=== PATIENT | female | born 1970 | race Caucasian/White ===

== ENCOUNTER → 2018-04-27 | Day surgery (SDC) | payer OTHER ==
[2018-04-22 15:48] LABS: BASOPHILS % 0.1 % (0.0-1.0); EOSINOPHILS # (AUTO) 0.1 (0.0-0.4); EOSINOPHILS % 1.5 % (0.0-6.0); HEMOGLOBIN 13.8 g/dL (12.0-16.0); LYMPHOCYTES % 22.3 % (18.0-39.1); MEAN CORPUSCULAR HGB CONC 32.1 g/dL (31-35); MEAN CORPUSCULAR VOLUME 87.4 fL (81-99); MONOCYTES # (AUTO) 0.7 (0.2-0.8); MONOCYTES % 7.8 % (4.4-11.3); NEUTROPHILS # (AUTO) 6.1 (2.1-6.9); PLATELET COUNT 197 x10e3/uL (140-360); RED BLOOD COUNT 4.92 x10e6/uL (3.6-5.1); RED CELL DISTRIBUTION WIDTH 14.2 % (11.7-14.4)
[2018-04-22 16:15] LABS: ANION GAP 12.1 mmol/L (8-16); BLOOD UREA NITROGEN 19 mg/dL (7-26); BUN/CREATININE RATIO 27 (6-25); CALCIUM 8.9 mg/dL (8.4-10.2); CARBON DIOXIDE 28 mmol/L (22-29); CHLORIDE 103 mmol/L (98-107); EST GLOMERULAR FILTRATION RATE > 60 ML/MIN (60-); GLUCOSE 168 mg/dL (74-118); POTASSIUM 4.1 mmol/L (3.5-5.1); SODIUM 139 mmol/L (136-145)
[2018-04-22 16:32] LABS: INR 0.9; PROTHROMBIN TIME 12.6 seconds (11.9-14.5)
[2018-04-22 16:33] LABS: PARTIAL THROMBOPLASTIN TIME 30.2 seconds (23.8-35.5)
--- NOTE | 2018-04-22 17:01 | Diagnostic Imaging Report ---
EXAM: CHEST 2 VIEWS, PA and lateral DATE: 04/22/2018 Time stamp on exam: 3:49 PM INDICATION: Preoperative COMPARISON: None FINDINGS: LINES/TUBES: None LUNGS: No consolidations or edema. PLEURA: No effusions or pneumothorax. HEART AND MEDIASTINUM: Normal size and contour. BONES AND SOFT TISSUES: No acute findings. Mild degenerative changes of the spine. IMPRESSION: No acute thoracic abnormality. Signed by: Dr. Segun Olivas DO on 04/22/2018 4:57 PM
[~2018-04-27] MED LIST: ACETAMINOPHEN 1000 MG/100 ML 100 ML IV ONE; ACETAMINOPHEN 1000 MG/100 ML IV ONE; BIOTIN PO; BUPIVACAINE HCL 0.5% INJ 30 ML VIAL INJ ONE; CALCIUM PO; CEFAZOLIN SOD 2 GM/D5W 50ML 50 ML IV ONE; DEXAMETHASONE SOD PHOS INJ 4 MG/ML VIAL ONE; FARXIGA PO; FENTANYL CITRATE/PF 100MCG/2 ML INJ ONE; FISH OIL 1,0001 EAC2 PO; LIDOCAINE HCL 1% LOCAL INJ 20 ML VIAL ONE; LIDOCAINE HCL 2% LOCAL INJ 5 ML SDV VIAL INJ ONE; LISINOPRIL2.5 MG PO; LYRICA50 MG PO; MACA500 MG PO; MAG PO; METFORMIN HCL500 MG PO; MIDAZOLAM HCL 2 MG/2 ML VIAL ONE; MULTI-VITAMIN1 EACH PO; ONDANSETRON HCL INJ 2MG/ML 2ML 2 MG/ML VIAL ONE; PROPOFOL IV EMULSION 10 MG/ML 20 ML VIAL ONE; SEVOFLURANE INHAL SOLN 250 ML PEN BTL ONE; ZINC PO; ZOLOFT50 MG PO; ZYRTEC-D TABLE1 EACH PO; [UNRECOGNIZED DRUG - OTHER] PO
--- OUTSIDE RECORDS SUMMARY | 2018-04-27 10:52 | XMS REPORT ---
Author Author Admin, [place] Organization [facility] Address [address] [place] [address] Phone Allergies, Adverse Reactions, Alerts Allergy Name Reaction Description Start Date Severity Status Provider SRAVANTHI joint pain and swelling Severe Active Nanette Mccollum MD Conditions or Problems Problem Name Problem Code Onset Date Status Entry Date Provider Comment Standard Description Annotate Pulmonary nodule, right middle lobe 518.89 Active Nanette Mccollum MD Other diseases of lung, not elsewhere classified Diabetic foot ulcer, right 707.14 Active Nanette Mccollum MD Ulcer of heel and midfoot Constipation Unspecified 564.00 Active Nanette Mccollum MD Constipation, unspecified Personal history of colonic polyps V12.72 Active Nanette Mccollum MD Personal history of colonic polyps Vaginitis, atrophic 627.3 Active Nanette Mccollum MD Postmenopausal atrophic vaginitis Family history of cancer V16.9 Active Nanette Mccollum MD Family history of unspecified malignant neoplasm Family history of female breast cancer of early onset age < 50 in 2nd degree relative V16.3 Active Nanette Mccollum MD Family history of malignant neoplasm of breast Family history of ovarian cancer in 1st degree relative V16.41 Active Nanette Mccollum MD Family history of malignant neoplasm of ovary Glycosuria 791.5 Active Nanette Mccollum MD Glycosuria Screening mammogram V76.12 Active Nanette Mccollum MD Other screening mammogram Intertrigo 695.89 Active Nanette Mccollum MD Other specified erythematous conditions Vaccine against flu/influenza V04.8 Active Nanette Mccollum MD Need for prophylactic vaccination and inoculation against other viral diseases Polyarthritis NOS, multiple sites 719.49 Active Nanette Mccollum MD Pain in joint involving multiple sites Dysuria 788.1 Active Nanette Mccollum MD Dysuria BMI 40.0-44.9 Active Nanette Mccollum MD Body Mass Index 40.0-44.9, adult Back pain 724.5 Active Marin Lewis MD Backache, unspecified Chronic pain 338.29 Active Marin Lewis MD Other chronic pain Depression 311 Active Marin Lewis MD Depressive disorder, not elsewhere classified Insomnia 780.52 Active Em 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 Insomnia, unspecified MORBID OBESITY Active Em GRAHAM Morbid obesity Triglyceridemia 272.1 Active Marin Lewis MD Pure hyperglyceridemia WELL WOMAN V72.31 Active Marin Lewis MD Routine gynecological examination HYPERTENSION 401.1 Active China Doe MD Benign essential hypertension 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) 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.01 Active China Doe MD Acquired absence of both cervix and uterus PREVENTIVE HEALTH CARE V70.0 Active China Doe MD Routine general medical examination at a health care facility NEUROPATHY 355.9 Active Patel Rojas MD Mononeuritis of unspecified site ANXIETY DEPRESSION 300.4 Active Patel Rojas MD Dysthymic disorder FIBROMYALGIA 729.1 Active Patel Rojas MD Myalgia and myositis, unspecified ARTHRITIS 716.90 Active Patel Rojas MD Arthropathy, unspecified, site unspecified CHRONIC PAIN SYNDROME 338.4 Active Patel Rojas MD Chronic pain syndrome DIABETES MELLITUS 250.00 Active Patel Rojas MD Diabetes mellitus without mention of complication, type II or unspecified type, not stated as uncontrolled OBESITY 278.00 Active Patel Rojas MD Obesity, unspecified URI ICD-465.9 Inactive Nanette Mccollum MD Sinusitis ICD-473.9 Inactive Nanette Mccollum MD Acute bronchitis ICD-466.0 Inactive Nanette Mccollum MD External otitis ICD-380.10 Inactive Nanette Mccollum MD Viral URI ICD-465.9 Inactive Em GRAHAM Dysuria ICD-788.1 Inactive Em GRAHAM Skin rash ICD-782.1 Inactive Em MARTINEZP Mammogram, abnormal, bilateral 793.80 Inactive Joni Alvarez MD Abnormal mammogram, unspecified Screening mammogram ICD-V76.12 Inactive Em MARTINEZP Abnormal mammogram ICD-793.80 Inactive Joni Alvarez MD Skin tag ICD-701.9 Inactive Em GRAHAM Vaccine against influenza ICD-V04.8 Inactive Em GRAHAM Yeast infection ICD-112.9 Inactive Em Mendoza [facility] Yeast infection ICD-112.9 Inactive Joni Alvarez MD Boil ICD-680.9 Inactive Joni Alvarez MD UTI ICD-599.0 Inactive Joni Alvarez MD INTERTRIGO ICD-695.89 Inactive Joni Alvarez MD URI ICD-465.9 Inactive Joni Alvarez MD MAMMOGRAM, SCREENING V76.12 Inactive China Doe MD Other screening mammogram MAMMOGRAM, SCREENING ICD-V76.12 Inactive Lawrence Day MD BACTERIAL VAGINITIS ICD-616.10 Inactive Joni Alvarez MD INSOMNIA ICD-780.52 Inactive Em Mendoza [facility] INTERTRIGO ICD-695.89 Inactive Joni Alvarez MD CELLULITIS, TOE ICD-681.10 Inactive Patel Rojas MD NEED PROPHYLACTIC VACCINATION&INOCULATION FLU ICD-V04.81 Inactive Em Mendoza [facility] URI 465.9 Resolved Nanette Mccollum MD Acute upper respiratory infections of unspecified site Sinusitis 473.9 Resolved Nanette Mccollum MD Unspecified sinusitis (chronic) Acute bronchitis 466.0 Resolved Nanette Mccollum MD Acute bronchitis External otitis 380.10 Resolved Nanette Mccollum MD Infective otitis externa, unspecified right ear Viral URI 465.9 Resolved Em GRAHAM Acute upper respiratory infections of unspecified site Dysuria 788.1 Resolved Em MARTINEZP Dysuria Skin rash 782.1 Resolved Em MARTINEZP Rash and other nonspecific skin eruption Screening mammogram V76.12 Resolved Em MARTINEZP Other screening mammogram Abnormal mammogram 793.80 Resolved Joni Alvarez MD Abnormal mammogram, unspecified Skin tag 701.9 Resolved Em GRAHAM Unspecified hypertrophic and atrophic conditions of skin Vaccine against influenza V04.8 Resolved Em GRAHAM Need for prophylactic vaccination and inoculation against other viral diseases Yeast infection 112.9 Resolved Em MARTINEZP Candidiasis of unspecified site Yeast infection 112.9 Resolved Marin Lewis MD Candidiasis of unspecified site Boil 680.9 Resolved Marin Lewis MD Carbuncle and furuncle of unspecified site UTI 599.0 Resolved Marin Lewis MD Urinary tract infection, site not specified INTERTRIGO 695.89 Resolved Marin Lewis MD Other specified erythematous conditions URI 465.9 Resolved Marin Lewis MD Acute upper respiratory infections of unspecified site BACTERIAL VAGINITIS 616.10 Resolved Marin Lewis MD Vaginitis and vulvovaginitis, unspecified INSOMNIA 780.52 Resolved Em GRAHAM Insomnia, unspecified INTERTRIGO 695.89 Resolved Marin Lewis MD Other specified erythematous conditions CELLULITIS, TOE 681.10 Resolved Patel Rojas MD Cellulitis and abscess of toe, unspecified NEED PROPHYLACTIC VACCINATION&INOCULATION FLU V04.81 Resolved Em MARTINEZP Need for prophylactic vaccination and inoculation against influenza Medication List Medication Instructions Start Date Stop Date Generic Name NDC Status Provider Patient Instruction FLUTICASONE PROPIONATE 50 MCG/ACT NASAL SUSPENSION 1 spray in each nostril Twice a Day FLUTICASONE PROPIONATE 04568830932 Active Nanette Mccollum MD Active SERTRALINE HCL 25 MG ORAL TABLET 1 tab By Mouth at bedtime SERTRALINE HCL 81789020017 Active Nanette Mccollum MD Active LYRICA 100MG CAP TAKE 1 CAPSULE BY MOUTH THREE TIMES DAILY PREGABALIN 42981534438 Active Tara Holland SEMICONDUCTOR TECHNICIAN Active FARXIGA 10 MG ORAL TABLET 1 tab By Mouth Every day DAPAGLIFLOZIN PROPANEDIOL 93615484856 Active Nanette Mccollum MD Active FLUCONAZOLE 150 MG ORAL TABLET 1 tab By Mouth once As Needed FLUCONAZOLE 16141862706 Active Nanette Mccollum MD Active VICTOZA 18 MG/3ML SUBCUTANEOUS SOLUTION PEN-INJECTOR Inject 1.8mg sq Every Day LIRAGLUTIDE 99513820739 Active Nanette Mccollum MD Active CLOTRIMAZOLE-BETAMETHASONE 1-0.05 % EXTERNAL CREAM apply topically Twice a Day CLOTRIMAZOLE-BETAMETHASONE 90930516983 Active Nanette Mccollum MD Active NYSTATIN 451190 UNIT/GM EXTERNAL POWDER apply to affected area four times a day NYSTATIN 00596815805 Active Nanette Mccollum MD Active TYLENOL WITH CODEINE #3 300-30 MG ORAL TABLET 1 by mouth every 8 hours as needed ACETAMINOPHEN-CODEINE 37411128726 Active Nanette Mccollum MD Active ONETOUCH LANCETS use to test blood sugars Twice a Day LANCETS Active Paloma Vaughn CPHT Active ADVOCATE INSULIN PEN NEEDLES 31G X 5 MM use as directed daily INSULIN PEN NEEDLE 89592992776 Active Nanette Mccollum MD Active ADVOCATE INSULIN PEN NEEDLES 31G X 8 MM use daily SC to inject insulin INSULIN PEN NEEDLE 25052112453 Active Nanette Mccollum MD Active Innovacene 2 w/Device KIT Use as directed to test blood sugar 2 times a day BLOOD GLUCOSE MONITORING SUPPL 20030952437 Active Paloma Vaughn CPHT Active Fitbit ULTRA BLUE IN VITRO STRIP Use as directed to test blood sugar 2 times a day. GLUCOSE BLOOD 53881987845 Active Paloma Vaughn CPHT Active RELION SHORT PEN NEEDLES 31G X 8 MM Use to dose insulin 2 times a day. INSULIN PEN NEEDLE 18613817097 Active Tara Holland LVN Active B-12 COMPLIANCE INJECTION 1000 MCG/ML INJECTION KIT 1mL Subcutaneous every day for 1 week, then every week for 1 month, CYANOCOBALAMIN 41411618135 Active Em 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 MIXER Active SIMVASTATIN 20 MG ORAL TABLET 1 By Mouth take at bedtime SIMVASTATIN 16481720269 Active Nanette Mccollum MD Active LISINOPRIL 5 MG ORAL TABLET 1 by mouth every day LISINOPRIL 43734691370 Active Nanette Mccollum MD Active GLUCOPHAGE 1000 MG ORAL TABLET One twice a day METFORMIN HCL 42470944688 Active Nanette Mccollum MD Active CEPHALEXIN 500 MG ORAL CAPSULE 1 cap by mouth three times a day CEPHALEXIN 500 MG ORAL CAPSULE 188909 CEPHALEXIN Inactive INTRAROSA 6.5 MG VAGINAL INSERT isert PV at bedtime INTRAROSA 6.5 MG VAGINAL INSERT PRASTERONE Inactive PREMARIN 0.625 MG/GM VAGINAL CREAM 1 gm PV nightly at bedtime 3 times per week PREMARIN 0.625 MG/GM VAGINAL CREAM ESTROGENS, CONJUGATED VAGINAL Inactive BACTRIM DS 800-160 MG ORAL TABLET 1 tab by mouth twice a day BACTRIM DS 800-160 MG ORAL TABLET 850275 TRIMETHOPRIM-SULFAMETHOXAZOLE Inactive DIFLUCAN 150 MG ORAL TABLET 1 by mouth x1 dose DIFLUCAN 150 MG ORAL TABLET 730211 FLUCONAZOLE Inactive GLYBURIDE 5 MG ORAL TABLET 1 by mouth twice a day GLYBURIDE 5 MG ORAL TABLET 525396 GLYBURIDE Inactive SULFAMETHOXAZOLE-TRIMETHOPRIM 800-160 MG ORAL TABLET 1 tab By Mouth Twice a Day SULFAMETHOXAZOLE-TRIMETHOPRIM 800-160 MG ORAL TABLET 301626 SULFAMETHOXAZOLE-TRIMETHOPRIM Inactive PYRIDIUM 100 MG ORAL TABLET 1 by mouth 3 times a day as needed PYRIDIUM 100 MG ORAL TABLET 1571847 PHENAZOPYRIDINE HCL Inactive SULFAMETHOXAZOLE-TRIMETHOPRIM 800-160 MG ORAL TABLET 1 tab By Mouth Twice a Day SULFAMETHOXAZOLE-TRIMETHOPRIM 800-160 MG ORAL TABLET 504911 SULFAMETHOXAZOLE-TRIMETHOPRIM Inactive JANUVIA 100 MG ORAL TABLET 1 tab By Mouth Every day JANUVIA 100 MG ORAL TABLET SITAGLIPTIN PHOSPHATE Inactive AMOXICILLIN 500 MG ORAL CAPSULE Take 4 tabs By Mouth one hour before dental appointment. AMOXICILLIN 500 MG ORAL CAPSULE 695067 AMOXICILLIN Inactive LYRICA 75 MG ORAL CAPSULE 2 caps By Mouth Twice a Day LYRICA 75 MG ORAL CAPSULE PREGABALIN Inactive AMOXICILLIN-POT CLAVULANATE 500-125 MG ORAL TABLET 1 tab By Mouth Twice a Day x 10 days AMOXICILLIN-POT CLAVULANATE 500-125 MG ORAL TABLET 418897 AMOXICILLIN-POT CLAVULANATE Inactive CHERATUSSIN AC 100-10 MG/5ML ORAL SOLUTION 5 ml By Mouth Four Times a Day As Needed CHERATUSSIN AC 100-10 MG/5ML ORAL SOLUTION 123393 GUAIFENESIN-CODEINE Inactive AZITHROMYCIN 250 MG ORAL TABLET 2 tablets by mouth on day one then one tablet by mouth each day for a total of 5 days AZITHROMYCIN 250 MG ORAL TABLET 525717 AZITHROMYCIN Inactive GLYBURIDE 5 MG ORAL TABLET 2 tabs by mouth twice a day GLYBURIDE 5 MG ORAL TABLET 562508 GLYBURIDE Inactive [id number]-[id number] 3.5-69624-8 OTIC SUSPENSION 2 drop in ears Three Times a Day [id number] 3.5-39314-0 OTIC SUSPENSION 759413 [id number] Inactive TESSALON PERLES 100 MG ORAL CAPSULE 1 by mouth 3 times a day as needed for cough TESSALON PERLES 100 MG ORAL CAPSULE 251857 BENZONATATE Inactive VICTOZA 18 MG/3ML SUBCUTANEOUS SOLUTION PEN-INJECTOR 1.8 mg SC Every day VICTOZA 18 MG/3ML SUBCUTANEOUS SOLUTION PEN-INJECTOR LIRAGLUTIDE Inactive LANTUS 100 UNIT/ML SUBCUTANEOUS SOLUTION 20 units SC at bedtime LANTUS 100 UNIT/ML SUBCUTANEOUS SOLUTION INSULIN GLARGINE Inactive TRADJENTA 5 MG ORAL TABLET 1 tab By Mouth Every day TRADJENTA 5 MG ORAL TABLET LINAGLIPTIN Inactive JANUVIA 100 MG ORAL TABLET 1 tab By Mouth Every day JANUVIA 100 MG ORAL TABLET SITAGLIPTIN PHOSPHATE Inactive LEVEMIR FLEXTOUCH 100 UNIT/ML SUBCUTANEOUS SOLUTION PEN-INJECTOR 50 units Twice a Day s/c LEVEMIR FLEXTOUCH 100 UNIT/ML SUBCUTANEOUS SOLUTION PEN-INJECTOR INSULIN DETEMIR Inactive LEVEMIR FLEXTOUCH 100 UNIT/ML SUBCUTANEOUS SOLUTION PEN-INJECTOR 20 units SC Every day LEVEMIR FLEXTOUCH 100 UNIT/ML SUBCUTANEOUS SOLUTION PEN-INJECTOR INSULIN DETEMIR Inactive TOUJEO SOLOSTAR 300 UNIT/ML SUBCUTANEOUS SOLUTION PEN-INJECTOR 20 units SC Every day TOUJEO SOLOSTAR 300 UNIT/ML SUBCUTANEOUS SOLUTION PEN-INJECTOR INSULIN GLARGINE Inactive TRAMADOL HCL 50 MG ORAL TABLET 1 tablets by mouth 3 times a day as needed for pain TRAMADOL HCL 50 MG ORAL TABLET 682412 TRAMADOL HCL Inactive AUGMENTIN 500-125 MG ORAL TABLET 1 by mouth twice a day AUGMENTIN 500-125 MG ORAL TABLET 303123 AMOXICILLIN-POT CLAVULANATE Inactive BROMFED DM 30-2-10 MG/5ML ORAL SYRUP 10 mL every six hours as needed for cough/congestion BROMFED DM 30-2-10 MG/5ML ORAL SYRUP 1964573 [id number]-[id number] Inactive DIFLUCAN 150 MG ORAL TABLET 1 by mouth x1 dose today DIFLUCAN 150 MG ORAL TABLET 219375 FLUCONAZOLE Inactive CLOTRIMAZOLE-BETAMETHASONE 1-0.05 % EXTERNAL CREAM Apply twice daily CLOTRIMAZOLE-BETAMETHASONE 1-0.05 % EXTERNAL CREAM 180525 CLOTRIMAZOLE-BETAMETHASONE Inactive BACTRIM DS 800-160 MG ORAL TABLET 1 tablet by mouth twice daily for 10 days BACTRIM DS 800-160 MG ORAL TABLET 076927 SULFAMETHOXAZOLE-TRIMETHOPRIM Inactive HYDROCORTISONE 2.5 % EXTERNAL CREAM apply to affected area twice a day HYDROCORTISONE 2.5 % EXTERNAL CREAM 967383 HYDROCORTISONE Inactive BYETTA 10 MCG PEN 10 MCG/0.04ML SUBCUTANEOUS SOLUTION PEN-INJECTOR 10 mcg sc Twice a Day BYETTA 10 MCG PEN 10 MCG/0.04ML SUBCUTANEOUS SOLUTION PEN-INJECTOR EXENATIDE Inactive DIFLUCAN 150 MG ORAL TABLET 1 by mouth DIFLUCAN 150 MG ORAL TABLET 622407 FLUCONAZOLE Inactive GLYBURIDE 5 MG ORAL TABLET 2 tablets twice daily GLYBURIDE 5 MG ORAL TABLET 725627 GLYBURIDE Inactive DIFLUCAN 150 MG ORAL TABLET 1 by mouth DIFLUCAN 150 MG ORAL TABLET 619599 FLUCONAZOLE Inactive BACTRIM DS 800-160 MG ORAL TABLET 1 tab by mouth twice a day BACTRIM DS 800-160 MG ORAL TABLET 251458 TRIMETHOPRIM-SULFAMETHOXAZOLE Inactive KEFLEX 500 MG ORAL CAPSULE take one caps Twice a Day for 7 days KEFLEX 500 MG ORAL CAPSULE 886868 CEPHALEXIN Inactive LANTUS 100 UNIT/ML SUBCUTANEOUS SOLUTION Take 35u SC every evening. LANTUS 100 UNIT/ML SUBCUTANEOUS SOLUTION INSULIN GLARGINE Inactive BYETTA 10 MCG PEN 10 MCG/0.04ML SUBCUTANEOUS SOLUTION PEN-INJECTOR 10mcg SC bid BYETTA 10 MCG PEN 10 MCG/0.04ML SUBCUTANEOUS SOLUTION PEN-INJECTOR EXENATIDE Inactive BUSPIRONE HCL 10 MG ORAL TABLET 1 by mouth twice a day for anxiety BUSPIRONE HCL 10 MG ORAL TABLET 983730 BUSPIRONE HCL Inactive CELEBREX 200 MG ORAL CAPSULE 1 by mouth every day CELEBREX 200 MG ORAL CAPSULE 553207 CELECOXIB Inactive CLOTRIMAZOLE-BETAMETHASONE 1-0.05 % EXTERNAL CREAM Apply to affected area Three Times a Day CLOTRIMAZOLE-BETAMETHASONE 1-0.05 % EXTERNAL CREAM 673048 CLOTRIMAZOLE-BETAMETHASONE Inactive GLYBURIDE 5 MG ORAL TABLET 1 by mouth twice a day GLYBURIDE 5 MG ORAL TABLET 219538 GLYBURIDE Inactive HYDROCHLOROTHIAZIDE 25 MG ORAL TABLET 1 by mouth every day HYDROCHLOROTHIAZIDE 25 MG ORAL TABLET 984951 HYDROCHLOROTHIAZIDE Inactive TRAMADOL HCL 50 MG ORAL TABLET Two as needed up to every 8 hours TRAMADOL HCL 50 MG ORAL TABLET 347498 TRAMADOL HCL Inactive CLOTRIMAZOLE 1 % EXTERNAL CREAM apply Twice a Day to affected areas CLOTRIMAZOLE 1 % EXTERNAL CREAM 094772 CLOTRIMAZOLE Inactive FLAGYL 500 MG ORAL TABLET 1 tab by mouth twice a day for 7 days FLAGYL 500 MG ORAL TABLET 415336 METRONIDAZOLE Inactive TRAZODONE HCL 50 MG ORAL TABLET 1 by mouth nightly at bedtime TRAZODONE HCL 50 MG ORAL TABLET 235404 TRAZODONE HCL Inactive BYETTA 10 MCG PEN 10 MCG/0.04ML SUBCUTANEOUS SOLUTION PEN-INJECTOR Inject twice a day BYETTA 10 MCG PEN 10 MCG/0.04ML SUBCUTANEOUS SOLUTION PEN-INJECTOR EXENATIDE Inactive HYDROCODONE-ACETAMINOPHEN 7.5-325 MG ORAL TABLET take one tablet twice a ay HYDROCODONE-ACETAMINOPHEN 7.5-325 MG ORAL TABLET 182140 HYDROCODONE-ACETAMINOPHEN Inactive WELLBUTRIN SR 150 MG ORAL TABLET EXTENDED RELEASE 12 HOUR 1 by mouth twice a day WELLBUTRIN SR 150 MG ORAL TABLET EXTENDED RELEASE 12 HOUR BUPROPION HCL Inactive ATENOLOL 50 MG ORAL TABLET At bedtime ATENOLOL 50 MG ORAL TABLET 340315 ATENOLOL Inactive LYRICA 100 MG ORAL CAPSULE Take 1 capsule by mouth Three Times a Day LYRICA 100 MG ORAL CAPSULE PREGABALIN Inactive CLINDAMYCIN HCL 300 MG ORAL CAPSULE one tablet by mouth every 6 hours CLINDAMYCIN HCL 300 MG ORAL CAPSULE 038882 CLINDAMYCIN HCL Inactive TRAMADOL HCL ER (BIPHASIC) 100 MG ORAL TABLET EXTENDED RELEASE 24 HOUR One twice a day TRAMADOL HCL ER (BIPHASIC) 100 MG ORAL TABLET EXTENDED RELEASE 24 HOUR TRAMADOL HCL Inactive BD PEN NEEDLE MINI U/F 31G X 5 MM use as directed BD PEN NEEDLE MINI U/F 31G X 5 MM INSULIN PEN NEEDLE Inactive CELEXA 20 MG ORAL TABLET One dayly CELEXA 20 MG ORAL TABLET 799772 CITALOPRAM HYDROBROMIDE Inactive GLIPIZIDE ER 5 MG ORAL TABLET EXTENDED RELEASE 24 HOUR One 3 times a day GLIPIZIDE ER 5 MG ORAL TABLET EXTENDED RELEASE 24 HOUR GLIPIZIDE Inactive CEPHALEXIN 500 MG ORAL CAPSULE 1 cap by mouth three times a day CEPHALEXIN 58378100754 No Longer Active Nanette Mccollum MD Active INTRAROSA 6.5 MG VAGINAL INSERT isert PV at bedtime PRASTERONE 14720090005 No Longer Active Nanette Mccollum MD Active PREMARIN 0.625 MG/GM VAGINAL CREAM 1 gm PV nightly at bedtime 3 times per week ESTROGENS, CONJUGATED VAGINAL 16542572220 No Longer Active Nanette Mccollum MD Active BACTRIM DS 800-160 MG ORAL TABLET 1 tab by mouth twice a day TRIMETHOPRIM-SULFAMETHOXAZOLE 91547436984 No Longer Active Nanette Mccollum MD Active DIFLUCAN 150 MG ORAL TABLET 1 by mouth x1 dose FLUCONAZOLE 19554952258 No Longer Active Nanette Mccollum MD Active GLYBURIDE 5 MG ORAL TABLET 1 by mouth twice a day GLYBURIDE 60744836480 No Longer Active Nanette Mccollum MD Active SULFAMETHOXAZOLE-TRIMETHOPRIM 800-160 MG ORAL TABLET 1 tab By Mouth Twice a Day SULFAMETHOXAZOLE-TRIMETHOPRIM 00454334226 No Longer Active Nanette Mccollum MD Active TRULICITY 1.5 MG/0.5ML SUBCUTANEOUS SOLUTION PEN-INJECTOR 0.25 ml SC Every week DULAGLUTIDE 78011381241 No Longer Active Nanette Mccollum MD Active PYRIDIUM 100 MG ORAL TABLET 1 by mouth 3 times a day as needed PHENAZOPYRIDINE HCL 40268642434 No Longer Active Nanette Mccollum MD Active SULFAMETHOXAZOLE-TRIMETHOPRIM 800-160 MG ORAL TABLET 1 tab By Mouth Twice a Day SULFAMETHOXAZOLE-TRIMETHOPRIM 06743218309 No Longer Active Nanette Mccollum MD Active JANUVIA 100 MG ORAL TABLET 1 tab By Mouth Every day SITAGLIPTIN PHOSPHATE 09783203436 No Longer Active Nanette Mccollum MD Active AMOXICILLIN 500 MG ORAL CAPSULE Take 4 tabs By Mouth one hour before dental appointment. AMOXICILLIN 92484735209 No Longer Active Dayne Lal DDS Active LYRICA 75 MG ORAL CAPSULE 2 caps By Mouth Twice a Day PREGABALIN 35414593752 No Longer Active Nanette Mccollum MD Active AMOXICILLIN-POT CLAVULANATE 500-125 MG ORAL TABLET 1 tab By Mouth Twice a Day x 10 days AMOXICILLIN-POT CLAVULANATE 29699345031 No Longer Active Nanette Mccollum MD Active CHERATUSSIN AC 100-10 MG/5ML ORAL SOLUTION 5 ml By Mouth Four Times a Day As Needed GUAIFENESIN-CODEINE 11114526649 No Longer Active Nanette Mccollum MD Active AZITHROMYCIN 250 MG ORAL TABLET 2 tablets by mouth on day one then one tablet by mouth each day for a total of 5 days AZITHROMYCIN 79444594140 No Longer Active Nanette Mccollum MD Active GLYBURIDE 5 MG ORAL TABLET 2 tabs by mouth twice a day GLYBURIDE 81749347939 No Longer Active Nanette Mccollum MD Active [id number]-[id number]-AZ 3.5-42517-8 OTIC SUSPENSION 2 drop in ears Three Times a Day [id number] 50918370845 No Longer Active Nanette Mccollum MD Active TESSALON PERLES 100 MG ORAL CAPSULE 1 by mouth 3 times a day as needed for cough BENZONATATE 85765617678 No Longer Active Nanette Mccollum MD Active VICTOZA 18 MG/3ML SUBCUTANEOUS SOLUTION PEN-INJECTOR 1.8 mg SC Every day LIRAGLUTIDE 10564273559 No Longer Active Paloma Vaughn CPHT Active LANTUS 100 UNIT/ML SUBCUTANEOUS SOLUTION 20 units SC at bedtime INSULIN GLARGINE 65009632290 No Longer Active Nanette Mccollum MD Active TRADJENTA 5 MG ORAL TABLET 1 tab By Mouth Every day LINAGLIPTIN 04697934699 No Longer Active Nanette Mccollum MD Active JANUVIA 100 MG ORAL TABLET 1 tab By Mouth Every day SITAGLIPTIN PHOSPHATE 40809645186 No Longer Active Nanette Mccollum MD Active LEVEMIR FLEXTOUCH 100 UNIT/ML SUBCUTANEOUS SOLUTION PEN-INJECTOR 50 units Twice a Day s/c INSULIN DETEMIR 24447137521 No Longer Active Donna Thakur MA Active LEVEMIR FLEXTOUCH 100 UNIT/ML SUBCUTANEOUS SOLUTION PEN-INJECTOR 20 units SC Every day INSULIN DETEMIR 21637388413 No Longer Active Marin Lewis MD Active SOLITARIOAlethaSAVANNAH FRANCISOSTAR 300 UNIT/ML SUBCUTANEOUS SOLUTION PEN-INJECTOR 20 units SC Every day INSULIN GLARGINE 76805135006 No Longer Active Nanette Mccollum MD Active TRAMADOL HCL 50 MG ORAL TABLET 1 tablets by mouth 3 times a day as needed for pain TRAMADOL HCL 66728996255 No Longer Active Nanette Mccollum MD Active AUGMENTIN 500-125 MG ORAL TABLET 1 by mouth twice a day AMOXICILLIN-POT CLAVULANATE 70920936955 No Longer Active Em GRAHAM Active BROMFED DM 30-2-10 MG/5ML ORAL SYRUP 10 mL every six hours as needed for cough/congestion [id number] 93028475488 No Longer Active Em GRAHAM Active DIFLUCAN 150 MG ORAL TABLET 1 by mouth x1 dose today FLUCONAZOLE 24023435033 No Longer Active Em GRAHAM Active CLOTRIMAZOLE-BETAMETHASONE 1-0.05 % EXTERNAL CREAM Apply twice daily CLOTRIMAZOLE-BETAMETHASONE 91090623634 No Longer Active Em GRAHAM Active BACTRIM DS 800-160 MG ORAL TABLET 1 tablet by mouth twice daily for 10 days SULFAMETHOXAZOLE-TRIMETHOPRIM 34276317159 No Longer Active Em GRAHAM Active HYDROCORTISONE 2.5 % EXTERNAL CREAM apply to affected area twice a day HYDROCORTISONE 25648293123 No Longer Active Em GRAHAM Active BYETTA 10 MCG PEN 10 MCG/0.04ML SUBCUTANEOUS SOLUTION PEN-INJECTOR 10 mcg sc Twice a Day EXENATIDE 29500292518 No Longer Active Nanette Mccollum MD Active DIFLUCAN 150 MG ORAL TABLET 1 by mouth FLUCONAZOLE 76594002173 No Longer Active Em GRAHAM Active GLYBURIDE 5 MG ORAL TABLET 2 tablets twice daily GLYBURIDE 09289294326 No Longer Active Nanette Mccollum MD Active DIFLUCAN 150 MG ORAL TABLET 1 by mouth FLUCONAZOLE 46097890366 No Longer Active Marin Lewis MD Active BACTRIM DS 800-160 MG ORAL TABLET 1 tab by mouth twice a day TRIMETHOPRIM-SULFAMETHOXAZOLE 71278724165 No Longer Active Marin Lewis MD Active KEFLEX 500 MG ORAL CAPSULE take one caps Twice a Day for 7 days CEPHALEXIN 56204529269 No Longer Active Diamond Bryant MD Active LANTUS 100 UNIT/ML SUBCUTANEOUS SOLUTION Take 35u SC every evening. INSULIN GLARGINE 74362528235 No Longer Active Marin Lewis MD Active BYETTA 10 MCG PEN 10 MCG/0.04ML SUBCUTANEOUS SOLUTION PEN-INJECTOR 10mcg SC bid EXENATIDE 21463670416 No Longer Active Marin Lewis MD Active BUSPIRONE HCL 10 MG ORAL TABLET 1 by mouth twice a day for anxiety BUSPIRONE HCL 01923650187 No Longer Active Marin Lewis MD Active CELEBREX 200 MG ORAL CAPSULE 1 by mouth every day CELECOXIB 54672522657 No Longer Active Marin Lewis MD Active CLOTRIMAZOLE-BETAMETHASONE 1-0.05 % EXTERNAL CREAM Apply to affected area Three Times a Day CLOTRIMAZOLE-BETAMETHASONE 40267127229 No Longer Active Diamond Bryant MD Active GLYBURIDE 5 MG ORAL TABLET 1 by mouth twice a day GLYBURIDE 17259402275 No Longer Active Apryl Ridley D.O. Active HYDROCHLOROTHIAZIDE 25 MG ORAL TABLET 1 by mouth every day HYDROCHLOROTHIAZIDE 44898199567 No Longer Active Marin Lewis MD Active TRAMADOL HCL 50 MG ORAL TABLET Two as needed up to every 8 hours TRAMADOL HCL 80763989582 No Longer Active Nikunj Hammond DO Active CLOTRIMAZOLE 1 % EXTERNAL CREAM apply Twice a Day to affected areas CLOTRIMAZOLE 52195331471 No Longer Active [place] Doe MD Active FLAGYL 500 MG ORAL TABLET 1 tab by mouth twice a day for 7 days METRONIDAZOLE [id number] No Longer Active Diamond Bryant MD Active TRAZODONE HCL 50 MG ORAL TABLET 1 by mouth nightly at bedtime TRAZODONE HCL 18664234598 No Longer Active Marin Lewis MD Active NYSTATIN 561010 UNIT/GM EXTERNAL CREAM Apply to affectted area TID NYSTATIN 75723642819 No Longer Active Maki King DO Active BYETTA 10 MCG PEN 10 MCG/0.04ML SUBCUTANEOUS SOLUTION PEN-INJECTOR Inject twice a day EXENATIDE [id number] No Longer Active Apryl Ridley D.O. Active HYDROCODONE-ACETAMINOPHEN 7.5-325 MG ORAL TABLET take one tablet twice a ay HYDROCODONE-ACETAMINOPHEN 71119425637 No Longer Active Diamond Bryant MD Active WELLBUTRIN SR 150 MG ORAL TABLET EXTENDED RELEASE 12 HOUR 1 by mouth twice a day BUPROPION HCL 64733571055 No Longer Active China Doe MD Active ATENOLOL 50 MG ORAL TABLET At bedtime ATENOLOL 24113530818 No Longer Active Marin Lewis MD Active LYRICA 100 MG ORAL CAPSULE Take 1 capsule by mouth Three Times a Day PREGABALIN 26406790607 No Longer Active Nanette Mccollum MD Active CLINDAMYCIN HCL 300 MG ORAL CAPSULE one tablet by mouth every 6 hours CLINDAMYCIN HCL 54405508019 No Longer Active Patel Rojas MD Active TRAMADOL HCL ER (BIPHASIC) 100 MG ORAL TABLET EXTENDED RELEASE 24 HOUR One twice a day TRAMADOL HCL 29503091862 No Longer Active Patel Rojas MD Active BD PEN NEEDLE MINI U/F 31G X 5 MM use as directed INSULIN PEN NEEDLE 26806643824 No Longer Active Marin Lewis MD Active CELEXA 20 MG ORAL TABLET One dayly CITALOPRAM HYDROBROMIDE 15713355726 No Longer Active Patel Rojas MD Active GLIPIZIDE ER 5 MG ORAL TABLET EXTENDED RELEASE 24 HOUR One 3 times a day GLIPIZIDE 46941733415 No Longer Active Patel Rojas MD Active NORTRIPTYLINE HCL 25 MG ORAL CAPSULE One daily at bedtime NORTRIPTYLINE HCL 60501875925 No Longer Active Patel Rojas MD Active TRIAMTERENE-HCTZ 75-50 MG ORAL TABLET One daily TRIAMTERENE-HCTZ 25081480722 No Longer Active Tara Holland IBETH Active Immunizations Vaccine Administration Date Value Standard Description influenza immunization (Flu Vax) has been administered given influenza virus vaccine, unspecified formulation influenza immunization (Flu Vax) has been administered given influenza virus vaccine, unspecified formulation influenza immunization (Flu Vax) has been administered given influenza virus vaccine, unspecified formulation Vital Signs Date Name Value Unit Range Description blood pressure, diastolic 76 mm[Hg] BP quiroz blood pressure, systolic 124 mm[Hg] BP sys height E&M 67 [in_us] Bdy height pulse rate E&M 85 /min Heart rate respiratory rate E&M 20 /min Resp rate temperature E&M 98.0 [degF] Body temperature weight E&M 212 [lb_av] Weight Measured blood pressure, diastolic 77 mm[Hg] BP quiroz blood pressure, systolic 125 mm[Hg] BP sys height E&M 67 [in_us] Bdy height pulse rate E&M 71 /min Heart rate respiratory rate E&M 22 /min Resp rate temperature E&M 98.2 [degF] Body temperature weight E&M 216 [lb_av] Weight Measured blood pressure, diastolic 80 mm[Hg] BP quiroz blood pressure, systolic 130 mm[Hg] BP sys height E&M 67 [in_us] Bdy height pulse rate E&M 70 /min Heart rate respiratory rate E&M 18 /min Resp rate temperature E&M 98.3 [degF] Body temperature weight E&M 228 [lb_av] Weight Measured blood pressure, diastolic, second observation 90 mm[Hg] BP quiroz blood pressure, diastolic 90 mm[Hg] BP quiroz blood pressure, systolic, second observation 147 mm[Hg] BP sys blood pressure, systolic 147 mm[Hg] BP sys height E&M 67 [in_us] Bdy height pulse rate E&M 111 /min Heart rate respiratory rate E&M 16 /min Resp rate temperature E&M 99.4 [degF] Body temperature weight E&M 230 [lb_av] Weight Measured blood pressure, diastolic 80 mm[Hg] BP quiroz blood pressure, systolic 120 mm[Hg] BP sys height E&M 67 [in_us] Bdy height pulse rate E&M 85 /min Heart rate respiratory rate E&M 16 /min Resp rate temperature E&M 98.2 [degF] Body temperature weight E&M 246 [lb_av] Weight Measured blood pressure, diastolic 86 mm[Hg] BP quiroz blood pressure, systolic 132 mm[Hg] BP sys height E&M 67 [in_us] Bdy height pulse rate E&M 82 /min Heart rate respiratory rate E&M 18 /min Resp rate temperature E&M 98.2 [degF] Body temperature weight E&M 246.80 [lb_av] Weight Measured blood pressure, diastolic 85 mm[Hg] BP quiroz blood pressure, systolic 130 mm[Hg] BP sys height E&M 67 [in_us] Bdy height pulse rate E&M 85 /min Heart rate respiratory rate E&M 16 /min Resp rate temperature E&M 97.7 [degF] Body temperature weight E&M 253.50 [lb_av] Weight Measured blood pressure, diastolic, second observation 89 mm[Hg] BP quiroz blood pressure, diastolic 89 mm[Hg] BP quiroz blood pressure, systolic, second observation 138 mm[Hg] BP sys blood pressure, systolic 138 mm[Hg] BP sys height E&M 67 [in_us] Bdy height pulse rate E&M 111 /min Heart rate respiratory rate E&M 16 /min Resp rate temperature E&M 98.3 [degF] Body temperature weight E&M 252.20 [lb_av] Weight Measured blood pressure, diastolic 85 mm[Hg] BP quiroz blood pressure, systolic 154 mm[Hg] BP sys height E&M 67 [in_us] Bdy height pulse rate E&M 108 /min Heart rate respiratory rate E&M 18 /min Resp rate temperature E&M 98.4 [degF] Body temperature weight E&M 251 [lb_av] Weight Measured blood pressure, diastolic 92 mm[Hg] BP quiroz blood pressure, systolic 155 mm[Hg] BP sys height E&M 67 [in_us] Bdy height pulse rate E&M 83 /min Heart rate respiratory rate E&M 18 /min Resp rate temperature E&M 98.1 [degF] Body temperature weight E&M 262.40 [lb_av] Weight Measured Diagnostic Results Date Name Value Unit Range Description Lab Report: UA/M w/rflx Culture, Routine, Microscopic Examination, UA/M ... - Urinalysis mucus on urinalysis Present Not Estab. WBC urine on microscopy 0-5 /hpf {Cells}/[HPF] 0 - 5 Lab Report: FSH and LH, Hemoglobin A1c - Chemistry follicle stimulating hormone, serum 60.5 m[iU]/mL Lab Report: CBC With Differential/Platelet, Comp. Metabolic Panel (14), ... - Chemistry very low density lipoproteins 37 mg/dL 5-40 Lab Report: UA/M w/rflx Culture, Routine, Microscopic Examination, UA/M ... - Urinalysis epithelial cells, urine 0-10 /[LPF] 0 - 10 Lab Report: CBC With Differential/Platelet, Comp. Metabolic Panel (14), ... - Chemistry chloride, serum 101 mmol/L 96-106 urea nitrogen, blood 13 mg/dL 6-24 Office Visit: Adult Followup - Urinalysis leukocyte esterase, urine, by dipstick negative Lab Report: CBC With Differential/Platelet, Comp. Metabolic Panel (14), ... - Hematology mean corpuscular hemoglobin concentration, RBC 31.7 G/DL % 31.5-35.7 Office Visit: Adult Followup - Urinalysis nitrite, urine, semiquantitative negative Lab Report: CBC With Differential/Platelet, Comp. Metabolic Panel (14), ... - Hematology erythrocyte (RBC) count 5.10 X10E6/UL 10*6/mm3 3.77-5.28 Office Visit: Adult Followup - Urinalysis urine color light yellow bilirubin, urine negative Lab Report: CBC With Differential/Platelet, Comp. Metabolic Panel (14), ... - Chemistry Absolute Neutrophils 7.7 X10E3/UL 10*3/uL 1.4-7.0 LDL cholesterol, serum 96 mg/dL 0-99 urea nitrogen/creatinine ratio, serum 20 9-23 Lab Report: CBC With Differential/Platelet, Comp. Metabolic Panel (14), ... - Hematology mean corpuscular volume, RBC 89 fL 79-97 Internal Correspondence: Pre-Visit Planning - CC care inspector outside steam distribution #1, name Donna Thakur Lab Report: CBC With Differential/Platelet, Comp. Metabolic Panel (14), ... - Chemistry HDL cholesterol, serum 57 mg/dL >39 Lab Report: CBC With Differential/Platelet, Comp. Metabolic Panel (14), ... - Hematology monocytes as percent of blood leukocytes 8 % Not Estab. Lab Report: CBC With Differential/Platelet, Comp. Metabolic Panel (14), ... - Chemistry albumin/globulin ratio, serum 1.5 1.2-2.2 creatinine, serum 0.64 mg/dL 0.57-1.00 cholesterol, serum 190 mg/dL 399-918 3848/07/19 creatinine, random, urine 54.0 mg/dL Not Estab. bilirubin, serum, total 0.4 mg/dL 0.0-1.2 Lab Report: CBC With Differential/Platelet, Comp. Metabolic Panel (14), ... - Hematology Eosinophil Absolute Count 0.2 X10E3/UL 10*3/uL 0.0-0.4 Office Visit: Adult Followup - Urinalysis appearance, urine clear blood in urine (hemoglobin) by dipstick negative Lab Report: CBC With Differential/Platelet, Comp. Metabolic Panel (14), ... - Chemistry aspartate aminotransferase (SGOT), serum 40 U/L 0-40 Lab Report: CBC With Differential/Platelet, Comp. Metabolic Panel (14), ... - Hematology red blood cell distribution width 14.8 % 12.3-15.4 Lab Report: UA/M w/rflx Culture, Routine, Microscopic Examination, UA/M ... - Urinalysis urinalysis, microscopic examination MICRON Office Visit: Adult Followup - Urinalysis pH, urine, semiquantitative 5.0 Lab Report: CBC With Differential/Platelet, Comp. Metabolic Panel (14), ... - Hematology leukocyte count, blood 11.6 X10E3/UL 10*3/mm3 3.4-10.8 Lab Report: UA/M w/rflx Culture, Routine, Microscopic Examination, UA/M ... - Urinalysis Crystal Type, Urine Calcium Oxalate N/A Lab Report: CBC With Differential/Platelet, Comp. Metabolic Panel (14), ... - Chemistry potassium, serum 4.4 mmol/L 3.5-5.2 albumin, serum 4.1 g/dL 3.5-5.5 immature granulocytes, percentage of total cells, blood 0 % Not Estab. Lab Report: CBC With Differential/Platelet, Comp. Metabolic Panel (14), ... - Hematology lymphocyte count, blood, automated 2.8 X10E3/UL 10*3/mm3 0.7-3.1 hematocrit, blood 45.4 % 34.0-46.6 Lab Report: CBC With Differential/Platelet, Comp. Metabolic Panel (14), ... - Chemistry sodium, serum 143 mmol/L 134-144 Lab Report: CBC With Differential/Platelet, Comp. Metabolic Panel (14), ... - Urinalysis urine culture Klebsiella pneumoniae Lab Report: CBC With Differential/Platelet, Comp. Metabolic Panel (14), ... - Hematology neutrophils as percent of blood leukocytes 67 % Not Estab. basophils as percent of blood leukocytes 0 % Not Estab. Internal Correspondence: Pre-Visit Planning - Other List of providers caring for patient Donna Mercado and Ana Luisa Larios Lab Report: UA/M w/rflx Culture, Routine, Microscopic Examination, UA/M ... - Chemistry specific gravity, body fluid 1.028 1.005-1.030 Office Visit: Adult Followup - Urinalysis protein, urine, semiquantitative (dipstick) negative Lab Report: UA/M w/rflx Culture, Routine, Microscopic Examination, UA/M ... - Chemistry RBC, Urine 0-2 /hpf /[HPF] 0 - 2 Lab Report: UA/M w/rflx Culture, Routine, Microscopic Examination, UA/M ... - Microbiology microscopic exam See below: Lab Report: CBC With Differential/Platelet, Comp. Metabolic Panel (14), ... - Chemistry carbon dioxide, venous blood 24 mmol/L 20-29 Lab Report: UA/M w/rflx Culture, Routine, Microscopic Examination, UA/M ... - Chemistry nitrate, urine Negative Negative Lab Report: CBC With Differential/Platelet, Comp. Metabolic Panel (14), ... - Chemistry triglyceride, serum, fasting 187 mg/dL 0-149 calcium, serum 9.4 mg/dL 8.7-10.2 Lab Report: Comp. Metabolic Panel (14), UA/M w/rflx Culture, Routine, Mi ... - Chemistry microalbumin/creatinine ratio, urine 5.3 MG/G CREAT ug/mg 0.0-30.0 Lab Report: CBC With Differential/Platelet, Comp. Metabolic Panel (14), ... - Chemistry alanine aminotransferase (SGPT), serum 54 U/L 0-32 Lab Report: CBC With Differential/Platelet, Comp. Metabolic Panel (14), ... - Hematology mean corpuscular hemoglobin, RBC 28.2 pg 26.6-33.0 Office Visit: Adult Followup Dr Mccollum Rm 1 - Chemistry blood glucose, fasting 236 mg/dL Office Visit: Adult Followup - Urinalysis specific gravity, urine 1.005 Lab Report: UA/M w/rflx Culture, Routine, Microscopic Examination, UA/M ... - Urinalysis bacteria, urine microscopy None seen None seen/Few Lab Report: CBC With Differential/Platelet, Comp. Metabolic Panel (14), ... - Chemistry protein, total, serum 6.9 g/dL 6.0-8.5 alkaline phosphatase, serum 68 U/L 39-117 Lab Report: CBC With Differential/Platelet, Comp. Metabolic Panel (14), ... - Hematology hemoglobin, blood 14.4 g/dL 11.1-15.9 lymphocytes as percent of blood leukocytes 24 % Not Estab. Lab Report: CBC With Differential/Platelet, Comp. Metabolic Panel (14), ... - Chemistry hemoglobin A1C, blood, as % of total hemoglobin 8.4 % 4.8-5.6 Office Visit: Adult Followup - Urinalysis glucose, urine, semiquantitative 4+ Lab Report: CBC With Differential/Platelet, Comp. Metabolic Panel (14), ... - Genetics/fertility eGFR if 122 mL/min/1.73m2 >59 Lab Report: CBC With Differential/Platelet, Comp. Metabolic Panel (14), ... - Hematology basophil count, absolute 0.0 x10E3/uL 0.0-0.2 Lab Report: CBC With Differential/Platelet, Comp. Metabolic Panel (14), ... - Chemistry globulin, serum 2.8 1.5-4.5 Estimated Glomerular Filtration Rate (calc) 106 mL/min/1.73m2 >59 Lab Report: UA/M w/rflx Culture, Routine, Microscopic Examination, UA/M ... - Basic Occult Blood, urine Negative Negative Lab Report: UA/M w/rflx Culture, Routine, Microscopic Examination, UA/M ... - Urinalysis urine crystals, microscopic Present /[HPF] N/A Lab Report: FSH and LH, Hemoglobin A1c - Chemistry luteinizing hormone, serum 48.4 m[iU]/mL Lab Report: CBC With Differential/Platelet, Comp. Metabolic Panel (14), ... - Urinalysis microalbumin/total urine volume 5.0 mg/L Not Estab. Lab Report: CBC With Differential/Platelet, Comp. Metabolic Panel (14), ... - Hematology eosinophils as percent of blood leukocytes 1 % Not Estab. Lab Report: CBC With Differential/Platelet, Comp. Metabolic Panel (14), ... - Chemistry blood glucose, random 68 mg/dL 65-99 Office Visit: Adult Followup - Urinalysis urobilinogen, urine, semiquantitative (dipstick) negative Lab Report: CBC With Differential/Platelet, Comp. Metabolic Panel (14), ... - Hematology monocyte count, blood, automated 0.9 X10E3/UL 10*3/uL 0.1-0.9 Office Visit: Adult Followup - Urinalysis ketones, urine, by test strip trace (5) Lab Report: CBC With Differential/Platelet, Comp. Metabolic Panel (14), ... - Hematology platelet count 204 X10E3/UL 10*3/mm3 150-379 Encounters Date Encounter Provider Code Facility 13:28:43 CDT Est Patient Exp Problem - [id number] Nanette Mccollum MD CPT-72902 [facility] 16:38:35 CDT Est Patient Exp Problem - 15633 Nanette Mccollum MD CPT-94535 [facility] 14:37:29 CDT Est Patient Exp Problem - 16450 Nanette Mccollum MD CPT-58276 [facility] 16:36:50 CDT Est Patient Detailed - 31570 Nanette Mccollum MD CPT-71127 [facility] 11:46:27 CDT Est Patient Exp Problem - 32533 Em MARTINEZP CPT-61844 [facility] 15:21:02 CDT Est Patient Exp Problem - 92605 Nanette Mccollum MD CPT-47252 [facility] 19:45:00 CDT Est Patient Exp Problem - 52927 Nanette Mccollum MD CPT-13467 [facility] 10:50:55 [employer]ATION ENGINE[employer] CHIEF Est Patient Detailed - 83610 Nanette Mccollum MD CPT-54655 [facility] 15:08:16 STATION ENGINEER CHIEF Est Patient Exp Problem - 20132 Nanette Mccollum MD CPT-38575 [facility] 12:39:15 STATION ENGINEER CHIEF Est Patient Exp Problem - 44016 Nanette Mccollum MD CPT-73622 [facility] 13:24:52 CDT Est Patient Exp Problem - 70919 Nanette Mccollum MD CPT-03900 [facility] 15:28:02 CDT Est Patient Exp Problem - 62233 Nanette Mccollum MD CPT-38966 [facility] 08:52:44 CDT Est Patient Exp Problem - 88471 Nanette Mccollum MD CPT-39277 [facility] 14:14:09 CDT Est Patient Exp Problem - 44738 Nanette Mccollum MD CPT-48951 [facility] 12:02:19 STATION ENGINEER CHIEF Est Patient Exp Problem - 45181 Nanette Mccollum MD CPT-10599 [facility] 16:39:15 STATION ENGINEER CHIEF Est Patient Exp Problem - 47777 Nanette Mccollum MD CPT-90568 [facility] 07:52:32 STATION ENGINEER CHIEF Est Patient Exp Problem - 01268 Marin Lewis MD CPT-74830 [facility] 11:04:58 STATION ENGINEER CHIEF Est Patient Exp Problem - 61722 Nanette Mccollum MD CPT-62820 [facility] 09:48:54 STATION ENGINEER CHIEF Est Patient Exp Problem - 21400 Em Mendoza [facility] CPT-20604 [facility] 14:52:28 CDT Est Patient Exp Problem - 91077 Em Mendoza [facility] CPT-09194 [facility] 09:27:32 CDT Est Patient Exp Problem - 16006 Emradhika Mendoza [facility] CPT-70427 [facility] 09:21:49 CDT Est Patient Exp Problem - 85883 Em Kelly [facility] CPT-36405 [facility] 12:01:51 STATION ENGINEER CHIEF Ofc Vst, Est Level III Marin Lewis MD CPT-72329 [facility] 21:14:38 CDT Ofc Vst, Est Level III Diamond Bryant MD CPT-39334 [facility] 19:44:39 CDT Est Patient Exp Problem - 56033 Diamond Bryant MD CPT-64517 [facility] 18:36:12 CDT Est Patient Exp Problem - 45825 Apryl Rosales.O. CPT-41162 [facility] 14:03:49 CDT Est Patient Exp Problem - 42507 Apryl Rosales.O. CPT-41991 [facility] 09:37:09 STATION ENGINEER CHIEF Est Patient Exp Problem - 64493 Apryl Rosales.O. CPT-74474 [facility] 13:33:56 STATION ENGINEER CHIEF Est Patient Exp Problem - 49466 Diamond Bryant MD CPT-37464 [facility] 16:00:53 STATION ENGINEER CHIEF Est Patient Exp Problem - 33995 Nikunj Hammond DO CPT-76701 [facility] 09:56:19 CDT Est Patient Exp Problem - 02933 China Doe MD CPT-93236 [facility] 09:10:49 CDT Est Patient Exp Problem - 71205 China Doe MD CPT-89336 [facility] 17:40:28 CDT Ofc Vst, Est Level III China Doe MD CPT-26084 [facility] 15:08:09 CDT Est Patient Exp Problem - 57637 Nikunj Hammond DO CPT-78412 [facility] 10:49:40 CDT Est Patient Exp Problem - 94492 Patel Rojas MD CPT-38012 [facility] 11:03:25 CDT Est Patient Exp Problem - 06572 Patel Rojas MD CPT-42202 [facility] 12:22:50 CDT Est Patient Exp Problem - 82809 Patel Rojas MD CPT-83514 [facility] 16:22:04 STATION ENGINEER CHIEF Est Patient Problem Focus - 01117 Patel Rojas MD CPT-92599 [facility] 17:18:22 STATION ENGINEER CHIEF Est Patient Exp Problem - 88905 Patel Rojas MD CPT-80811 [facility] 16:08:42 STATION ENGINEER CHIEF Est Patient Exp Problem - 26194 Patel Rojas MD CPT-93025 [facility] 11:40:21 STATION ENGINEER CHIEF Est Patient Exp Problem - 84277 Patel Rojas MD CPT-14102 [facility] 13:43:27 CDT Est Patient Exp Problem - 18109 Patel Rojas MD CPT-21948 [facility] Procedures Code Procedure Name Date Entry Date Standard Description CPT-30301 Urinalysis - Dip only - In House 16:38:34 CDT CPT-52808 HEMOGLOBIN A1C - In House 14:37:29 CDT CPT-03756 Urinalysis - Dip only - In House 16:36:49 CDT CPT-06223 Urinalysis - Dip only - In House 11:46:26 CDT CPT-37533 Urinalysis - Dip only - In House 15:08:15 STATION ENGINEER CHIEF CPT-41512 INFLUENZA VACCINE QUADRIVALENT 3 YRS PLUS IM 13:24:59 CDT CPT-03319 Urinalysis - Dip only - In House 08:52:44 CDT CPT-93930 Glucose Stick 16:39:15 STATION ENGINEER CHIEF CPT-28031 Diagnostic evaluation (no medical) - 43787 15:56:13 STATION ENGINEER CHIEF CPT-01945 INFLUENZA VAC 4 VALENT PRSRV FREE 3 YRS PLUS IM 09:48:54 STATION ENGINEER CHIEF CPT-20971 Urinalysis - Dip only - In House 14:52:30 CDT CPT-61178 REMOVAL SK TGS CHINESE INSTRUCTOR FIBRQ TAGS ANY AREA UP&W/15< 13:08:43 STATION ENGINEER CHIEF CPT-68274 Influenza - Adult - Injection 14:23:29 CDT CPT-50614 Est Patient Well Exam (40 - 64 Yrs) - 04382 14:23:19 CDT CPT-83661 Influenza - Adult - Injection 17:40:58 CDT CPT-77610 Influenza - Adult - Injection 16:08:42 STATION ENGINEER CHIEF
--- OUTSIDE RECORDS SUMMARY | 2018-04-27 10:52 | XMS REPORT ---
[facility] Address Unknown Phone Unavailable Support Name Relationship Address Phone [address] [place], [place] [phone] [address] [place], [place] [phone] [address] [phone] [address] [address] [address] [place], [place] [address] [address] [place], [place] [address] Care Team Providers Care Doctor Of Naprapathic Medicine Name Role Phone Declan CARABALLO Unavailable Unavailable Payers Payer Name Policy Type Policy Number Effective Date Expiration Date Problems This patient has no known problems. Allergies, Adverse Reactions, Alerts Allergy Name Allergy Type Status Severity Reaction(s) Onset Date Inactive Date Treating Clinician Comments No Known Allergies DA Active U 2018-02-09 00:00:00 No Known Drug Intolerances DA Active U 1997-03-24 00:00:00 Medications This patient has no known medications. Results Test Description Test Time Test Comments Text Results Atomic Results Result Comments CHEST 2 VIEWS 2018-04-22 16:57:00 [facility] [address] [place], [place] [address] Patient Name: BLAYNE AIKEN MR #: [id number] : 1970 Age/Sex: 48/F Req #: [id number] Adm Physician: Ordered by: SHALINI CARABALLO DPM Report #: [id number] Location: OR Room/Bed: Procedure: [id number] DX/CHEST 2 VIEWS Exam Date: Exam Time: REPORT STATUS: Signed EXAM: CHEST 2 VIEWS, PA and lateral DATE: 04/22/2018 Time stamp on exam: 3:49 PM INDICATION: Preoperative COMPARISON: None FINDINGS: LINES/TUBES: None LUNGS: No consolidations or edema. PLEURA: No effusions or pneumothorax. HEART AND MEDIASTINUM: Normal size and contour. BONES AND SOFT TISSUES: No acute findings. Mild degenerative changes of the spine. IMPRESSION: No acute thoracic abnormality. Signed by: Dr. Kyle Olivas DO on 04/22/2018 4:57 PM Dictated By: KYLE OLIVAS DO 56 Transcribed By: SOO on 04/22/181656 COPY TO: SHALINI CARABALLO DPM
--- OUTSIDE RECORDS SUMMARY | 2018-04-27 10:52 | XMS REPORT ---
Author Author Admin, Duncan Organization [facility] Address [address] [place] [address] Phone Allergies, Adverse Reactions, Alerts Allergy Name [...] Nanette Mccollum MD Other specified erythematous conditions Polyarthritis NOS, multiple sites 719.49 Active Nanette [...] not elsewhere classified Insomnia 780.52 Active Em GRAHAM Insomnia, unspecified MORBID OBESITY Active Em GRAHAM [...] unspecified URI ICD-465.9 Inactive Nanette Mccollum MD Vaccine against flu/influenza ICD-V04.8 Inactive Nanette Mccollum MD Sinusitis ICD-473.9 Inactive [...] Em GRAHAM Yeast infection ICD-112.9 Inactive Em MARTINEZP Yeast infection ICD-112.9 Inactive Joni Alvarez MD Boil ICD-680.9 Inactive Joni Alvarez MD UTI ICD-599.0 Inactive Joni Alvarez MD INTERTRIGO ICD-695.89 Inactive Joni Alvarez MD URI ICD-465.9 Inactive Joni Alvarez MD MAMMOGRAM, SCREENING V76.12 Inactive China Doe MD Other screening mammogram MAMMOGRAM, SCREENING ICD-V76.12 Inactive Lawrence Day MD BACTERIAL VAGINITIS ICD-616.10 Inactive Joni Alvarez MD INSOMNIA ICD-780.52 Inactive Em GRAHAM INTERTRIGO ICD-695.89 Inactive Joni Alvarez MD CELLULITIS, TOE ICD-681.10 Inactive Patel Rojas MD NEED PROPHYLACTIC VACCINATION&INOCULATION FLU ICD-V04.81 Inactive Em GRAHAM URI 465.9 Resolved Nanette Mccollum MD Acute upper respiratory infections of unspecified site Vaccine against flu/influenza V04.8 Resolved Nanette Mccollum MD Need for prophylactic vaccination and inoculation against other viral diseases Sinusitis 473.9 Resolved Nanette Mccollum MD Unspecified sinusitis (chronic) Acute bronchitis 466.0 Resolved Nanette Mccollum MD Acute bronchitis External otitis 380.10 Resolved Nanette Mccollum MD Infective otitis externa, unspecified right ear Viral URI 465.9 Resolved Em Mendoza [employer] Acute upper respiratory infections of unspecified site Dysuria 788.1 Resolved Em Mendoza [employer] Dysuria Skin rash 782.1 Resolved Em MARTINEZP Rash and other nonspecific skin eruption Screening mammogram V76.12 Resolved Em MARTINEZP Other screening mammogram Abnormal mammogram 793.80 Resolved Joni Alvarez MD Abnormal mammogram, unspecified Skin tag 701.9 Resolved Em MARTINEZP Unspecified hypertrophic and atrophic conditions of skin [...] and vulvovaginitis, unspecified INSOMNIA 780.52 Resolved Em Kelly [employer] Insomnia, unspecified INTERTRIGO 695.89 Resolved Marin Lewis MD Other specified erythematous conditions CELLULITIS, TOE 681.10 Resolved Patel Rojas MD Cellulitis and abscess of toe, unspecified NEED PROPHYLACTIC VACCINATION&INOCULATION FLU V04.81 Resolved Em Mendoza [employer] Need for prophylactic vaccination and inoculation against influenza Medication List Medication Instructions Start Date Stop Date Generic Name NDC Status Provider Patient Instruction SERTRALINE HCL 50 MG ORAL TABLET 1 tab By Mouth at bedtime SERTRALINE HCL 38322624443 Active Nanette Mccollum MD Active FLUTICASONE PROPIONATE 50 MCG/ACT NASAL SUSPENSION 1 spray in each nostril Twice a Day FLUTICASONE PROPIONATE 14814499156 Active Nanette Mccollum MD Active LYRICA 100MG CAP TAKE 1 CAPSULE BY MOUTH THREE TIMES DAILY PREGABALIN 22922831053 Active Tara Holland [employer] Active FARXIGA 10 MG ORAL TABLET 1 tab By Mouth Every day DAPAGLIFLOZIN PROPANEDIOL 78171943318 Active Nanette Mccollum MD Active FLUCONAZOLE 150 MG ORAL TABLET 1 tab By Mouth once As Needed FLUCONAZOLE 68536670510 Active Nanette Mccollum MD Active CLOTRIMAZOLE-BETAMETHASONE 1-0.05 % EXTERNAL CREAM apply topically Twice a Day CLOTRIMAZOLE-BETAMETHASONE 94316407544 Active Nanette Mccollum MD Active NYSTATIN 718865 UNIT/GM EXTERNAL POWDER apply to affected area four times a day NYSTATIN 95318135647 Active Nanette Mccollum MD Active ViewsyTOUCH LANCETS use to test blood sugars Twice a Day LANCETS Active Paloma Vaughn CPHT Active ADVOCATE INSULIN PEN NEEDLES 31G X 5 MM use as directed daily INSULIN PEN NEEDLE 32218066951 Active Nanette Mccollum MD Active ADVOCATE INSULIN PEN NEEDLES 31G X 8 MM use daily SC to inject insulin INSULIN PEN NEEDLE 29061994621 Active Nanette Mccollum MD Active Han grass biomassUCH ULTRA 2 w/Device KIT Use as directed to test blood sugar 2 times a day BLOOD GLUCOSE MONITORING SUPPL 58661004279 Active Paloma Vaughn [facility] Active ONETOUCH ULTRA BLUE IN VITRO STRIP Use as directed to test blood sugar 2 times a day. GLUCOSE BLOOD 43195987443 Active Paloma Vaughn [facility] Active RELION SHORT PEN NEEDLES 31G X 8 MM Use to dose insulin 2 times a day. INSULIN PEN NEEDLE 96435913426 Active Tara Holland [employer] Active B-12 COMPLIANCE INJECTION 1000 MCG/ML INJECTION KIT 1mL Subcutaneous every day for 1 week, then every week for 1 month, CYANOCOBALAMIN 89670614232 Active Em GRAHAM Active SIMVASTATIN 20 MG ORAL TABLET 1 By Mouth take at bedtime SIMVASTATIN 03724024936 Active Nanette Mccollum MD Active LISINOPRIL 5 MG ORAL TABLET 1 by mouth every day LISINOPRIL 55365219246 Active Nanette Mccollum MD Active GLUCOPHAGE 1000 MG ORAL TABLET One twice a day METFORMIN HCL 08041663252 Active Nanette Mccollum MD Active CEPHALEXIN 500 MG ORAL CAPSULE 1 cap by mouth three times a day CEPHALEXIN 500 MG ORAL CAPSULE 238320 CEPHALEXIN Inactive SERTRALINE HCL 25 MG ORAL TABLET 1 tab By Mouth at bedtime SERTRALINE HCL 25 MG ORAL TABLET 325286 SERTRALINE HCL Inactive INTRAROSA 6.5 MG VAGINAL INSERT isert PV at bedtime INTRAROSA 6.5 MG VAGINAL INSERT PRASTERONE Inactive PREMARIN 0.625 MG/GM VAGINAL CREAM 1 gm PV nightly at bedtime 3 times per week PREMARIN 0.625 MG/GM VAGINAL CREAM ESTROGENS, CONJUGATED VAGINAL Inactive BACTRIM DS 800-160 MG ORAL TABLET 1 tab by mouth twice a day BACTRIM DS 800-160 MG ORAL TABLET 19820412 TRIMETHOPRIM-SULFAMETHOXAZOLE Inactive DIFLUCAN 150 MG ORAL TABLET 1 by mouth x1 dose DIFLUCAN 150 MG ORAL TABLET 19751018 FLUCONAZOLE Inactive GLYBURIDE 5 MG ORAL TABLET 1 by mouth twice a day GLYBURIDE 5 MG ORAL TABLET 113159 GLYBURIDE Inactive SULFAMETHOXAZOLE-TRIMETHOPRIM 800-160 MG ORAL TABLET 1 tab By Mouth Twice a Day SULFAMETHOXAZOLE-TRIMETHOPRIM 800-160 MG ORAL TABLET 837492 SULFAMETHOXAZOLE-TRIMETHOPRIM Inactive VICTOZA 18 MG/3ML SUBCUTANEOUS SOLUTION PEN-INJECTOR Inject 1.8mg sq Every Day VICTOZA 18 MG/3ML SUBCUTANEOUS SOLUTION PEN-INJECTOR LIRAGLUTIDE Inactive PYRIDIUM 100 MG ORAL TABLET 1 by mouth 3 times a day as needed PYRIDIUM 100 MG ORAL TABLET 6993606 PHENAZOPYRIDINE HCL Inactive SULFAMETHOXAZOLE-TRIMETHOPRIM 800-160 MG ORAL TABLET 1 tab By Mouth Twice a Day SULFAMETHOXAZOLE-TRIMETHOPRIM 800-160 MG ORAL TABLET 985353 SULFAMETHOXAZOLE-TRIMETHOPRIM Inactive JANUVIA 100 MG ORAL TABLET 1 tab By Mouth Every day JANUVIA 100 MG ORAL TABLET SITAGLIPTIN PHOSPHATE Inactive AMOXICILLIN 500 MG ORAL CAPSULE Take 4 tabs By Mouth one hour before dental appointment. AMOXICILLIN 500 MG ORAL CAPSULE 856836 AMOXICILLIN Inactive LYRICA 75 MG ORAL CAPSULE 2 caps By Mouth Twice a Day LYRICA 75 MG ORAL CAPSULE PREGABALIN Inactive TYLENOL WITH CODEINE #3 300-30 MG ORAL TABLET 1 by mouth every 8 hours as needed TYLENOL WITH CODEINE #3 300-30 MG ORAL TABLET ACETAMINOPHEN-CODEINE Inactive AMOXICILLIN-POT CLAVULANATE 500-125 MG ORAL TABLET 1 tab By Mouth Twice a Day x 10 days AMOXICILLIN-POT CLAVULANATE 500-125 MG ORAL TABLET 377000 AMOXICILLIN-POT CLAVULANATE Inactive CHERATUSSIN AC 100-10 MG/5ML ORAL SOLUTION 5 ml By Mouth Four Times a Day As Needed CHERATUSSIN AC 100-10 MG/5ML ORAL SOLUTION 402498 GUAIFENESIN-CODEINE Inactive AZITHROMYCIN 250 MG ORAL TABLET 2 tablets by mouth on day one then one tablet by mouth each day for a total of 5 days AZITHROMYCIN 250 MG ORAL TABLET 547967 AZITHROMYCIN Inactive GLYBURIDE 5 MG ORAL TABLET 2 tabs by mouth twice a day GLYBURIDE 5 MG ORAL TABLET 378183 GLYBURIDE Inactive [id number]-ZI 3.5-02584-6 OTIC SUSPENSION 2 drop in ears Three Times a Day [id number] 3.5-98046-3 OTIC SUSPENSION 103688 [id number] Inactive TESSALON PERLES 100 MG ORAL CAPSULE 1 by mouth 3 times a day as needed for cough TESSALON PERLES 100 MG ORAL CAPSULE 928149 BENZONATATE Inactive VICTOZA 18 MG/3ML SUBCUTANEOUS SOLUTION [...] pain TRAMADOL HCL 50 MG ORAL TABLET 346057 TRAMADOL HCL Inactive AUGMENTIN 500-125 MG ORAL TABLET 1 by mouth twice a day AUGMENTIN 500-125 MG ORAL TABLET 334105 AMOXICILLIN-POT CLAVULANATE Inactive BROMFED DM 30-2-10 MG/5ML ORAL SYRUP 10 mL every six hours as needed for cough/congestion BROMFED DM 30-2-10 MG/5ML ORAL SYRUP 3205065 [id number] Inactive DIFLUCAN 150 MG ORAL TABLET 1 by mouth x1 dose today DIFLUCAN 150 MG ORAL TABLET 836116 FLUCONAZOLE Inactive CLOTRIMAZOLE-BETAMETHASONE 1-0.05 % EXTERNAL CREAM Apply twice daily CLOTRIMAZOLE-BETAMETHASONE 1-0.05 % EXTERNAL CREAM 190160 CLOTRIMAZOLE-BETAMETHASONE Inactive BACTRIM DS 800-160 MG ORAL TABLET 1 tablet by mouth twice daily for 10 days BACTRIM DS 800-160 MG ORAL TABLET 199149 SULFAMETHOXAZOLE-TRIMETHOPRIM Inactive HYDROCORTISONE 2.5 % EXTERNAL CREAM apply to affected area twice a day HYDROCORTISONE 2.5 % EXTERNAL CREAM 851323 HYDROCORTISONE Inactive BYETTA 10 MCG PEN 10 MCG/0.04ML SUBCUTANEOUS SOLUTION PEN-INJECTOR 10 mcg sc Twice a Day BYETTA 10 MCG PEN 10 MCG/0.04ML SUBCUTANEOUS SOLUTION PEN-INJECTOR EXENATIDE Inactive DIFLUCAN 150 MG ORAL TABLET 1 by mouth DIFLUCAN 150 MG ORAL TABLET 327035 FLUCONAZOLE Inactive GLYBURIDE 5 MG ORAL TABLET 2 tablets twice daily GLYBURIDE 5 MG ORAL TABLET 685909 GLYBURIDE Inactive DIFLUCAN 150 MG ORAL TABLET 1 by mouth DIFLUCAN 150 MG ORAL TABLET 154077 FLUCONAZOLE Inactive BACTRIM DS 800-160 MG ORAL TABLET 1 tab by mouth twice a day BACTRIM DS 800-160 MG ORAL TABLET 108175 TRIMETHOPRIM-SULFAMETHOXAZOLE Inactive KEFLEX 500 MG ORAL CAPSULE take one caps Twice a Day for 7 days KEFLEX 500 MG ORAL CAPSULE 793352 CEPHALEXIN Inactive LANTUS 100 UNIT/ML SUBCUTANEOUS SOLUTION Take 35u SC every evening. LANTUS 100 UNIT/ML SUBCUTANEOUS SOLUTION INSULIN GLARGINE Inactive BYETTA 10 MCG PEN 10 MCG/0.04ML SUBCUTANEOUS SOLUTION PEN-INJECTOR 10mcg SC bid BYETTA 10 MCG PEN 10 MCG/0.04ML SUBCUTANEOUS SOLUTION PEN-INJECTOR EXENATIDE Inactive BUSPIRONE HCL 10 MG ORAL TABLET 1 by mouth twice a day for anxiety BUSPIRONE HCL 10 MG ORAL TABLET 070067 BUSPIRONE HCL Inactive CELEBREX 200 MG ORAL CAPSULE 1 by mouth every day CELEBREX 200 MG ORAL CAPSULE 310639 CELECOXIB Inactive CLOTRIMAZOLE-BETAMETHASONE 1-0.05 % EXTERNAL CREAM Apply to affected area Three Times a Day CLOTRIMAZOLE-BETAMETHASONE 1-0.05 % EXTERNAL CREAM 760468 CLOTRIMAZOLE-BETAMETHASONE Inactive GLYBURIDE 5 MG ORAL TABLET 1 by mouth twice a day GLYBURIDE 5 MG ORAL TABLET 837359 GLYBURIDE Inactive HYDROCHLOROTHIAZIDE 25 MG ORAL TABLET 1 by mouth every day HYDROCHLOROTHIAZIDE 25 MG ORAL TABLET 090843 HYDROCHLOROTHIAZIDE Inactive TRAMADOL HCL 50 MG ORAL TABLET Two as needed up to every 8 hours TRAMADOL HCL 50 MG ORAL TABLET 982766 TRAMADOL HCL Inactive CLOTRIMAZOLE 1 % EXTERNAL CREAM apply Twice a Day to affected areas CLOTRIMAZOLE 1 % EXTERNAL CREAM 292952 CLOTRIMAZOLE Inactive FLAGYL 500 MG ORAL TABLET 1 tab by mouth twice a day for 7 days FLAGYL 500 MG ORAL TABLET 400076 METRONIDAZOLE Inactive TRAZODONE HCL 50 MG ORAL TABLET 1 by mouth nightly at bedtime TRAZODONE HCL 50 MG ORAL TABLET 723534 TRAZODONE HCL Inactive BYETTA 10 MCG PEN 10 MCG/0.04ML SUBCUTANEOUS SOLUTION PEN-INJECTOR Inject twice a day BYETTA 10 MCG PEN 10 MCG/0.04ML SUBCUTANEOUS SOLUTION PEN-INJECTOR EXENATIDE Inactive HYDROCODONE-ACETAMINOPHEN 7.5-325 MG ORAL TABLET take one tablet twice a ay HYDROCODONE-ACETAMINOPHEN 7.5-325 MG ORAL TABLET 697751 HYDROCODONE-ACETAMINOPHEN Inactive WELLBUTRIN SR 150 MG ORAL TABLET EXTENDED RELEASE 12 HOUR 1 by mouth twice a day WELLBUTRIN SR 150 MG ORAL TABLET EXTENDED RELEASE 12 HOUR BUPROPION HCL Inactive ATENOLOL 50 MG ORAL TABLET At bedtime ATENOLOL 50 MG ORAL TABLET 645275 ATENOLOL Inactive LYRICA 100 MG ORAL CAPSULE Take 1 capsule by mouth Three Times a Day LYRICA 100 MG ORAL CAPSULE PREGABALIN Inactive CLINDAMYCIN HCL 300 MG ORAL CAPSULE one tablet by mouth every 6 hours CLINDAMYCIN HCL 300 MG ORAL CAPSULE 114482 CLINDAMYCIN HCL Inactive TRAMADOL HCL ER (BIPHASIC) [...] One dayly CELEXA 20 MG ORAL TABLET 885250 CITALOPRAM HYDROBROMIDE Inactive GLIPIZIDE ER 5 MG ORAL TABLET EXTENDED RELEASE 24 HOUR One 3 times a day GLIPIZIDE ER 5 MG ORAL TABLET EXTENDED RELEASE 24 HOUR GLIPIZIDE Inactive CEPHALEXIN 500 MG ORAL CAPSULE 1 cap by mouth three times a day CEPHALEXIN 48782077196 No Longer Active Nanette Mccollum MD Active SERTRALINE HCL 25 MG ORAL TABLET 1 tab By Mouth at bedtime SERTRALINE HCL 32981200726 No Longer Active Nanette Mccollum MD Active INTRAROSA 6.5 MG VAGINAL INSERT isert PV at bedtime PRASTERONE 49588010264 No Longer Active Nanette Mccollum MD Active PREMARIN 0.625 MG/GM VAGINAL CREAM 1 gm PV nightly at bedtime 3 times per week ESTROGENS, CONJUGATED VAGINAL 43232339164 No Longer Active Nanette Mccollum MD Active BACTRIM DS 800-160 MG ORAL TABLET 1 tab by mouth twice a day TRIMETHOPRIM-SULFAMETHOXAZOLE 59625831871 No Longer Active Nanette Mccollum MD Active DIFLUCAN 150 MG ORAL TABLET 1 by mouth x1 dose FLUCONAZOLE 65737694305 No Longer Active Nanette Mccollum MD Active GLYBURIDE 5 MG ORAL TABLET 1 by mouth twice a day GLYBURIDE 66601679404 No Longer Active Nanette Mccollum MD Active SULFAMETHOXAZOLE-TRIMETHOPRIM 800-160 MG ORAL TABLET 1 tab By Mouth Twice a Day SULFAMETHOXAZOLE-TRIMETHOPRIM 33420793232 No Longer Active Nanette Mccollum MD Active TRULICITY 1.5 MG/0.5ML SUBCUTANEOUS SOLUTION PEN-INJECTOR 0.25 ml SC Every week DULAGLUTIDE 18931541868 No Longer Active Nanette Mccollum MD Active VICTOZA 18 MG/3ML SUBCUTANEOUS SOLUTION PEN-INJECTOR Inject 1.8mg sq Every Day LIRAGLUTIDE 42326412931 No Longer Active Nanette Mccollum MD Active PYRIDIUM 100 MG ORAL TABLET 1 by mouth 3 times a day as needed PHENAZOPYRIDINE HCL 99622538157 No Longer Active Nanette Mccollum MD Active SULFAMETHOXAZOLE-TRIMETHOPRIM 800-160 MG ORAL TABLET 1 tab By Mouth Twice a Day SULFAMETHOXAZOLE-TRIMETHOPRIM 50293815017 No Longer Active Nanette Mccollum MD Active JANUVIA 100 MG ORAL TABLET 1 tab By Mouth Every day SITAGLIPTIN PHOSPHATE 76023890008 No Longer Active Nanette Mccollum MD Active AMOXICILLIN 500 MG ORAL CAPSULE Take 4 tabs By Mouth one hour before dental appointment. AMOXICILLIN 85982693452 No Longer Active Dayne Lal DDS Active LYRICA 75 MG ORAL CAPSULE 2 caps By Mouth Twice a Day PREGABALIN 65734129963 No Longer Active Nanette Mccollum MD Active TYLENOL WITH CODEINE #3 300-30 MG ORAL TABLET 1 by mouth every 8 hours as needed ACETAMINOPHEN-CODEINE 83948587408 No Longer Active Nanette Mccollum MD Active AMOXICILLIN-POT CLAVULANATE 500-125 MG ORAL TABLET 1 tab By Mouth Twice a Day x 10 days AMOXICILLIN-POT CLAVULANATE 72349182479 No Longer Active Nanette Mccollum MD Active CHERATUSSIN AC 100-10 MG/5ML ORAL SOLUTION 5 ml By Mouth Four Times a Day As Needed GUAIFENESIN-CODEINE 44519459603 No Longer Active Nanette Mccollum MD Active AZITHROMYCIN 250 MG ORAL TABLET 2 tablets by mouth on day one then one tablet by mouth each day for a total of 5 days AZITHROMYCIN 63471180705 No Longer Active Nanette Mccollum MD Active GLYBURIDE 5 MG ORAL TABLET 2 tabs by mouth twice a day GLYBURIDE 43726211336 No Longer Active Nanette Mccollum MD Active [id number]-KH 3.5-12227-5 OTIC SUSPENSION 2 drop in ears Three Times a Day [id number] 18927764818 No Longer Active Nanette Mccollum MD Active TESSALON PERLES 100 MG ORAL CAPSULE 1 by mouth 3 times a day as needed for cough BENZONATATE 54503213796 No Longer Active Nanette Mccollum MD Active VICTOZA 18 MG/3ML SUBCUTANEOUS SOLUTION PEN-INJECTOR 1.8 mg SC Every day LIRAGLUTIDE 61712827928 No Longer Active Paloma Vaughn CPHT Active LANTUS 100 UNIT/ML SUBCUTANEOUS SOLUTION 20 units SC at bedtime INSULIN GLARGINE 51945847712 No Longer Active Nanette Mccollum MD Active TRADJENTA 5 MG ORAL TABLET 1 tab By Mouth Every day LINAGLIPTIN 33114936994 No Longer Active Nanette Mccollum MD Active JANUVIA 100 MG ORAL TABLET 1 tab By Mouth Every day SITAGLIPTIN PHOSPHATE 80947232313 No Longer Active Nanette Mccollum MD Active LEVEMIR FLEXTOUCH 100 UNIT/ML SUBCUTANEOUS SOLUTION PEN-INJECTOR 50 units Twice a Day s/c INSULIN DETEMIR 86580303254 No Longer Active Donna Thakur MA Active LEVEMIR FLEXTOUCH 100 UNIT/ML SUBCUTANEOUS SOLUTION PEN-INJECTOR 20 units SC Every day INSULIN DETEMIR 40274607249 No Longer Active Marin Lewis MD Active TOUJEO SOLOSTAR 300 UNIT/ML SUBCUTANEOUS SOLUTION PEN-INJECTOR 20 units SC Every day INSULIN GLARGINE 87266217779 No Longer Active Nanette Mccollum MD Active TRAMADOL HCL 50 MG ORAL TABLET 1 tablets by mouth 3 times a day as needed for pain TRAMADOL HCL 66241230537 No Longer Active Nanette Mccollum MD Active AUGMENTIN 500-125 MG ORAL TABLET 1 by mouth twice a day AMOXICILLIN-POT CLAVULANATE 33558055798 No Longer Active Em GRAHAM Active BROMFED DM 30-2-10 MG/5ML ORAL SYRUP 10 mL every six hours as needed for cough/congestion [id number] 17134328422 No Longer Active Em GRAHAM Active DIFLUCAN 150 MG ORAL TABLET 1 by mouth x1 dose today FLUCONAZOLE 54713035770 No Longer Active Em GRAHAM Active CLOTRIMAZOLE-BETAMETHASONE 1-0.05 % EXTERNAL CREAM Apply twice daily CLOTRIMAZOLE-BETAMETHASONE 32665431754 No Longer Active Em GRAHAM Active BACTRIM DS 800-160 MG ORAL TABLET 1 tablet by mouth twice daily for 10 days SULFAMETHOXAZOLE-TRIMETHOPRIM 84300605339 No Longer Active Em GRAHAM Active HYDROCORTISONE 2.5 % EXTERNAL CREAM apply to affected area twice a day HYDROCORTISONE 53335173061 No Longer Active Em GRAHAM Active BYETTA 10 MCG PEN 10 MCG/0.04ML SUBCUTANEOUS SOLUTION PEN-INJECTOR 10 mcg sc Twice a Day EXENATIDE 93468926843 No Longer Active Nanette Mccollum MD Active DIFLUCAN 150 MG ORAL TABLET 1 by mouth FLUCONAZOLE 27817708474 No Longer Active Em GRAHAM Active GLYBURIDE 5 MG ORAL TABLET 2 tablets twice daily GLYBURIDE 71042791698 No Longer Active Nanette Mccollum MD Active DIFLUCAN 150 MG ORAL TABLET 1 by mouth FLUCONAZOLE 34795960610 No Longer Active Marin Lewis MD Active BACTRIM DS 800-160 MG ORAL TABLET 1 tab by mouth twice a day TRIMETHOPRIM-SULFAMETHOXAZOLE 26686029924 No Longer Active Marin Lewis MD Active KEFLEX 500 MG ORAL CAPSULE take one caps Twice a Day for 7 days CEPHALEXIN 28161996851 No Longer Active Diamond Bryant MD Active LANTUS 100 UNIT/ML SUBCUTANEOUS SOLUTION Take 35u SC every evening. INSULIN GLARGINE 91343825751 No Longer Active Marin Lewis MD Active BYETTA 10 MCG PEN 10 MCG/0.04ML SUBCUTANEOUS SOLUTION PEN-INJECTOR 10mcg SC bid EXENATIDE 65744572260 No Longer Active Marin Lewis MD Active BUSPIRONE HCL 10 MG ORAL TABLET 1 by mouth twice a day for anxiety BUSPIRONE HCL 74321074822 No Longer Active Marin Lewis MD Active CELEBREX 200 MG ORAL CAPSULE 1 by mouth every day CELECOXIB 90316651666 No Longer Active Marin Lewis MD Active CLOTRIMAZOLE-BETAMETHASONE 1-0.05 % EXTERNAL CREAM Apply to affected area Three Times a Day CLOTRIMAZOLE-BETAMETHASONE 88873927692 No Longer Active Diamond Bryant MD Active GLYBURIDE 5 MG ORAL TABLET 1 by mouth twice a day GLYBURIDE 98478210148 No Longer Active Apryl Rosales.Schuyler Active HYDROCHLOROTHIAZIDE 25 MG ORAL TABLET 1 by mouth every day HYDROCHLOROTHIAZIDE 13617367313 No Longer Active Marin Lewis MD Active TRAMADOL HCL 50 MG ORAL TABLET Two as needed up to every 8 hours TRAMADOL HCL 98049964694 No Longer Active Nikunj Hammond DO Active CLOTRIMAZOLE 1 % EXTERNAL CREAM apply Twice a Day to affected areas CLOTRIMAZOLE 09165346427 No Longer Active China Doe MD Active FLAGYL 500 MG ORAL TABLET 1 tab by mouth twice a day for 7 days METRONIDAZOLE 12492028557 No Longer Active Diamond Bryant MD Active TRAZODONE HCL 50 MG ORAL TABLET 1 by mouth nightly at bedtime TRAZODONE HCL 78564023445 No Longer Active Marin Lewis MD Active NYSTATIN 413158 UNIT/GM EXTERNAL CREAM Apply to affectted area TID NYSTATIN 98187026766 No Longer Active Maki King DO Active BYETTA 10 MCG PEN 10 MCG/0.04ML SUBCUTANEOUS SOLUTION PEN-INJECTOR Inject twice a day EXENATIDE 11126839700 No Longer Active Apryl Rosales.Schuyler Active HYDROCODONE-ACETAMINOPHEN 7.5-325 MG ORAL TABLET take one tablet twice a ay HYDROCODONE-ACETAMINOPHEN 59897197504 No Longer Active Diamond Bryant MD Active WELLBUTRIN SR 150 MG ORAL TABLET EXTENDED RELEASE 12 HOUR 1 by mouth twice a day BUPROPION HCL 97138389298 No Longer Active China Doe MD Active ATENOLOL 50 MG ORAL TABLET At bedtime ATENOLOL 38402410092 No Longer Active Marin Lewis MD Active LYRICA 100 MG ORAL CAPSULE Take 1 capsule by mouth Three Times a Day PREGABALIN 13672622242 No Longer Active Nanette Mccollum MD Active CLINDAMYCIN HCL 300 MG ORAL CAPSULE one tablet by mouth every 6 hours CLINDAMYCIN HCL 25975376010 No Longer Active Patel Rojas MD Active TRAMADOL HCL ER (BIPHASIC) 100 MG ORAL TABLET EXTENDED RELEASE 24 HOUR One twice a day TRAMADOL HCL 78589984469 No Longer Active Patel Rojas MD Active BD PEN NEEDLE MINI U/F 31G X 5 MM use as directed INSULIN PEN NEEDLE 48170969077 No Longer Active Marin Lewis MD Active CELEXA 20 MG ORAL TABLET One dayly CITALOPRAM HYDROBROMIDE 33576008456 No Longer Active Patel Rojas MD Active GLIPIZIDE ER 5 MG ORAL TABLET EXTENDED RELEASE 24 HOUR One 3 times a day GLIPIZIDE 00410648395 No Longer Active Patel Rojas MD Active NORTRIPTYLINE HCL 25 MG ORAL CAPSULE One daily at bedtime NORTRIPTYLINE HCL 67163382079 No Longer Active Patel Rojas MD Active TRIAMTERENE-HCTZ 75-50 MG ORAL TABLET One daily TRIAMTERENE-HCTZ 65304541286 No Longer Active Tara Gasparvinjorge luis CRISTINA Active Immunizations Vaccine Administration Date Value Standard [...] 67 [in_us] Bdy height pulse rate E&M 79 /min Heart rate respiratory rate E&M 18 /min Resp rate temperature E&M 98.3 [degF] Body temperature weight E&M 198.60 [lb_av] Weight Measured blood pressure, diastolic 76 mm[Hg] BP quiroz [...] temperature weight E&M 252.20 [lb_av] Weight Measured Diagnostic Results Date Name [...] nitrogen, blood 13 mg/dL 6-24 Office Visit: Acute Visit Dr. Mccollum - Urinalysis leukocyte esterase, urine, by dipstick negative Lab Report: CBC With Differential/Platelet, Comp. Metabolic Panel (14), ... - Hematology mean corpuscular hemoglobin concentration, RBC 31.7 G/DL % 31.5-35.7 Office Visit: Acute Visit Dr. Mccollum - Urinalysis nitrite, urine, semiquantitative negative Lab Report: CBC With Differential/Platelet, Comp. Metabolic Panel (14), ... - Hematology erythrocyte (RBC) count 5.10 X10E6/UL 10*6/mm3 3.77-5.28 Office Visit: Acute Visit Dr. Mccollum - Urinalysis urine color yellow bilirubin, urine negative Lab Report: CBC With Differential/Platelet, Comp. Metabolic Panel (14), ... - Chemistry Absolute Neutrophils 7.7 X10E3/UL 10*3/uL 1.4-7.0 LDL cholesterol, serum 96 mg/dL 0-99 urea nitrogen/creatinine ratio, serum 20 9-23 Lab Report: CBC With Differential/Platelet, Comp. Metabolic Panel (14), ... - Hematology mean corpuscular volume, RBC 89 fL 79-97 Internal Correspondence: Pre-Visit Planning - CC care production team advisor #1, name Donna Thakur Lab Report: CBC With Differential/Platelet, Comp. Metabolic Panel (14), ... - Chemistry HDL cholesterol, serum 57 mg/dL >39 Lab Report: CBC With Differential/Platelet, Comp. Metabolic Panel (14), ... - Hematology monocytes as percent of blood leukocytes 8 % Not Estab. Lab Report: CBC With Differential/Platelet, Comp. Metabolic Panel (14), ... - Chemistry creatinine, serum 0.64 mg/dL 0.57-1.00 albumin/globulin ratio, serum 1.5 1.2-2.2 cholesterol, serum 190 mg/dL 807-928 3626/07/19 creatinine, random, urine 54.0 mg/dL Not Estab. bilirubin, serum, total 0.4 mg/dL 0.0-1.2 Lab Report: CBC With Differential/Platelet, Comp. Metabolic Panel (14), ... - Hematology Eosinophil Absolute Count 0.2 X10E3/UL 10*3/uL 0.0-0.4 Office Visit: Acute Visit Dr. Mccollum - Urinalysis appearance, urine clear blood in [...] Urinalysis urinalysis, microscopic examination MICRON Office Visit: Acute Visit Dr. Mccollum - Urinalysis pH, urine, semiquantitative 6.5 Lab Report: CBC With Differential/Platelet, Comp. Metabolic Panel (14), ... - Hematology leukocyte count, blood 11.6 X10E3/UL 10*3/mm3 3.4-10.8 Lab Report: UA/M w/rflx Culture, Routine, Microscopic Examination, UA/M ... - Urinalysis Crystal Type, Urine Calcium Oxalate N/A Lab Report: CBC With Differential/Platelet, Comp. Metabolic Panel (14), ... - Chemistry potassium, serum 4.4 mmol/L 3.5-5.2 immature granulocytes, percentage of total cells, blood 0 % Not Estab. albumin, serum 4.1 g/dL 3.5-5.5 Lab Report: CBC With Differential/Platelet, Comp. Metabolic [...] caring for patient Donna Mercado and Ana Luias Larios Lab Report: UA/M w/rflx Culture, Routine, Microscopic Examination, UA/M ... - Chemistry specific gravity, body fluid 1.028 1.005-1.030 Office Visit: Acute Visit Dr. Mccollum - Urinalysis protein, urine, semiquantitative (dipstick) negative [...] blood glucose, fasting 236 mg/dL Office Visit: Acute Visit Dr. Mccollum - Urinalysis specific gravity, urine 1.005 Lab [...] total hemoglobin 8.4 % 4.8-5.6 Office Visit: Acute Visit Dr. Mccollum - Urinalysis glucose, urine, semiquantitative 4+ Lab [...] glucose, random 68 mg/dL 65-99 Office Visit: Acute Visit Dr. Mccollum - Urinalysis urobilinogen, urine, semiquantitative (dipstick) negative Lab Report: CBC With Differential/Platelet, Comp. Metabolic Panel (14), ... - Hematology monocyte count, blood, automated 0.9 X10E3/UL 10*3/uL 0.1-0.9 Office Visit: Acute Visit Dr. Mccollum - Urinalysis ketones, urine, by test strip negative Lab Report: CBC With Differential/Platelet, Comp. Metabolic Panel (14), ... - Hematology platelet count 204 X10E3/UL 10*3/mm3 150-379 Encounters Date Encounter Provider Code Facility 10:37:19 COUPON MANIFEST CLERK Est Patient Exp Problem - [id number] Nanette Mccollum MD CPT-87996 [facility] 13:28:43 CDT Est Patient Exp Problem - 16156 Nanette Mccollum MD CPT-45242 [facility] 16:38:35 CDT Est Patient Exp Problem - [id number] Nanette Mccollum MD CPT-00026 [facility] 14:37:29 CDT Est Patient Exp Problem - 73453 Nanette Mccollum MD CPT-19709 [facility] 16:36:50 CDT Est Patient Detailed - 88024 Nanette Mccollum MD CPT-51307 [facility] 11:46:27 CDT Est Patient Exp Problem - 48132 Em Mendoza [employer] CPT-53823 [facility] 15:21:02 CDT Est Patient Exp Problem - 37756 Nanette Mccollum MD CPT-76848 [facility] 19:45:00 CDT Est Patient Exp Problem - 56486 Nanette Mccollum MD CPT-44521 [facility] 10:50:55 COUPON MANIFEST CLERK Est Patient Detailed - 17366 Nanette Mccollum MD CPT-00028 [facility] 15:08:16 COUPON MANIFEST CLERK Est Patient Exp Problem - 27375 Nanette Mccollum MD CPT-43844 [facility] 12:39:15 COUPON MANIFEST CLERK Est Patient Exp Problem - 35310 Nanette Mccollum MD CPT-97400 [facility] 13:24:52 CDT Est Patient Exp Problem - 83776 Nanette Mccollum MD CPT-84381 [facility] 15:28:02 CDT Est Patient Exp Problem - 65720 Nanette Mccollum MD CPT-96758 [facility] 08:52:44 CDT Est Patient Exp Problem - 53757 Nanette Mccollum MD CPT-25340 [facility] 14:14:09 CDT Est Patient Exp Problem - 00972 Nanette Mccollum MD CPT-01834 [facility] 12:02:19 COUPON MANIFEST CLERK Est Patient Exp Problem - 52590 Nanette Mccollum MD CPT-60126 [facility] 16:39:15 COUPON MANIFEST CLERK Est Patient Exp Problem - 32436 Nanette Mccollum MD CPT-02195 [facility] 07:52:32 COUPON MANIFEST CLERK Est Patient Exp Problem - 29216 Marin Lewis MD CPT-42965 [facility] 11:04:58 COUPON MANIFEST CLERK Est Patient Exp Problem - 10080 Nanette Mccollum MD CPT-62892 [facility] 09:48:54 COUPON MANIFEST CLERK Est Patient Exp Problem - 87990 Em Mendoza [facility] CPT-28057 [facility] 14:52:28 CDT Est Patient Exp Problem - 97429 Em Mendoza [facility] CPT-73984 [facility] 09:27:32 CDT Est Patient Exp Problem - 06173 Em Mendoza [facility] CPT-64595 [facility] 09:21:49 CDT Est Patient Exp Problem - 55199 Em Mendoza [facility] CPT-68780 [facility] 12:01:51 COUPON MANIFEST CLERK Ofc Vst, Est Level III Marin Lewis MD CPT-15151 [facility] 21:14:38 CDT Ofc Vst, Est Level III Diamond Bryant MD CPT-76044 [facility] 19:44:39 CDT Est Patient Exp Problem - 43711 Diamond Bryant MD CPT-53827 [facility] 18:36:12 CDT Est Patient Exp Problem - 44647 Apryl Rosales.O. CPT-01967 [facility] 14:03:49 CDT Est Patient Exp Problem - 81491 Apryl Rosales.O. CPT-43692 [facility] 09:37:09 COUPON MANIFEST CLERK Est Patient Exp Problem - 15448 Apryl Rosales.O. CPT-16496 [facility] 13:33:56 COUPON MANIFEST CLERK Est Patient Exp Problem - 85682 Diamond Bryant MD CPT-38917 [facility] 16:00:53 COUPON MANIFEST CLERK Est Patient Exp Problem - 02023 Nikunj Hammond DO CPT-34595 [facility] 09:56:19 CDT Est Patient Exp Problem - 04093 China Doe MD CPT-47200 [facility] 09:10:49 CDT Est Patient Exp Problem - 03509 China Doe MD CPT-99819 [facility] 17:40:28 CDT Ofc Vst, Est Level III China Doe MD CPT-00967 [facility] 15:08:09 CDT Est Patient Exp Problem - 51611 Nikunj Titi Hammond DO CPT-59812 [facility] 10:49:40 CDT Est Patient Exp Problem - 69102 Patel Rojas MD CPT-04374 [facility] 11:03:25 CDT Est Patient Exp Problem - 48870 Patel Rojas MD CPT-34890 [facility] 12:22:50 CDT Est Patient Exp Problem - 87792 Patel Rojas MD CPT-90270 [facility] 16:22:04 COUPON MANIFEST CLERK Est Patient Problem Focus - 60444 Patel Rojas MD CPT-98715 [facility] 17:18:22 COUPON MANIFEST CLERK Est Patient Exp Problem - 98459 Patel Rojas MD CPT-11384 [facility] 16:08:42 COUPON MANIFEST CLERK Est Patient Exp Problem - 10657 Patle Rojas MD CPT-52207 [facility] 11:40:21 COUPON MANIFEST CLERK Est Patient Exp Problem - 74378 Patel Rojas MD CPT-68183 [facility] 13:43:27 CDT Est Patient Exp Problem - 16141 Patel Rojas MD CPT-37136 [facility] Procedures Code Procedure Name Date Entry Date Standard Description CPT-37348 Urinalysis - Dip only - In House 10:37:19 COUPON MANIFEST CLERK CPT-15161 Urinalysis - Dip only - In House 16:38:34 CDT CPT-02253 HEMOGLOBIN A1C - In House 14:37:29 CDT CPT-47620 Urinalysis - Dip only - In House 16:36:49 CDT CPT-29085 Urinalysis - Dip only - In House 11:46:26 CDT CPT-19864 Urinalysis - Dip only - In House 15:08:15 COUPON MANIFEST CLERK CPT-32409 INFLUENZA VACCINE QUADRIVALENT 3 YRS PLUS IM 13:24:59 CDT CPT-32352 Urinalysis - Dip only - In House 08:52:44 CDT CPT-26772 Glucose Stick 16:39:15 COUPON MANIFEST CLERK CPT-29694 Diagnostic evaluation (no medical) - 83803 15:56:13 COUPON MANIFEST CLERK CPT-02163 INFLUENZA VAC 4 VALENT PRSRV FREE 3 YRS PLUS IM 09:48:54 COUPON MANIFEST CLERK CPT-32619 Urinalysis - Dip only - In House 14:52:30 CDT CPT-42346 REMOVAL SK TGS GIFT WRAPPER FIBRQ TAGS ANY AREA UP&W/15< 13:08:43 COUPON MANIFEST CLERK CPT-76143 Influenza - Adult - Injection 14:23:29 CDT CPT-62555 Est Patient Well Exam (40 - 64 Yrs) - 35341 14:23:19 CDT CPT-77370 Influenza - Adult - Injection 17:40:58 CDT CPT-00899 Influenza - Adult - Injection 16:08:42 COUPON MANIFEST CLERK
--- OUTSIDE RECORDS SUMMARY | 2018-04-27 10:53 | XMS REPORT ---
Author Author Admin, [place] Organization [facility] Address [address] [place] [address] Phone Allergies, Adverse Reactions, Alerts Allergy Name Reaction Description Start Date Severity Status Provider SRAVANTHI joint pain and swelling Severe Active Nanette Mccollum MD Conditions or Problems Problem Name Problem Code Onset Date Status Entry Date Provider Comment Standard Description Annotate Preoperative examination V72.84 Active Nanette Mccollum MD Preoperative examination, unspecified Pulmonary nodule, right middle lobe 518.89 Active [...] elsewhere classified Insomnia 780.52 Active Em Mendoza [employer] Insomnia, unspecified MORBID OBESITY Active Em GRAHAM [...] Mccollum MD Viral URI ICD-465.9 Inactive Em MARTINEZP Dysuria ICD-788.1 Inactive Em MARTINEZP Skin rash ICD-782.1 Inactive Em MARTINEZP Mammogram, abnormal, bilateral 793.80 Inactive Joni Alvarez MD Abnormal mammogram, unspecified Screening mammogram ICD-V76.12 Inactive Em MARTINEZP Abnormal mammogram ICD-793.80 Inactive Joni Alvarez MD Skin tag ICD-701.9 Inactive Em MARTINEZP Vaccine against influenza ICD-V04.8 Inactive Em MARTINEZP Yeast infection ICD-112.9 Inactive Em MARTINEZP Yeast [...] ear Viral URI 465.9 Resolved Em Mendoza [employer] Acute upper respiratory infections of unspecified site Dysuria 788.1 Resolved Em MARTINEZP Dysuria Skin rash 782.1 Resolved Em GRAHAM Rash and other nonspecific skin eruption Screening mammogram V76.12 Resolved Em MARTINEZP Other screening mammogram Abnormal mammogram 793.80 Resolved Joni Alvarez MD Abnormal mammogram, unspecified Skin tag 701.9 Resolved Em Mendoza [employer] Unspecified hypertrophic and atrophic conditions of skin Vaccine against influenza V04.8 Resolved Em GRAHAM Need for prophylactic vaccination and inoculation against other viral diseases Yeast infection 112.9 Resolved Em GRAHAM Candidiasis of unspecified site Yeast infection 112.9 [...] and vulvovaginitis, unspecified INSOMNIA 780.52 Resolved Em Mendoza [employer] Insomnia, unspecified INTERTRIGO 695.89 Resolved Marin Lewis MD Other specified erythematous conditions CELLULITIS, TOE 681.10 Resolved Patel Rojas MD Cellulitis and abscess of toe, unspecified NEED PROPHYLACTIC VACCINATION&INOCULATION FLU V04.81 Resolved Em Mendoza [employer] Need for prophylactic vaccination and inoculation against influenza Medication List Medication Instructions Start Date Stop Date Generic Name NDC Status Provider Patient Instruction SERTRALINE HCL 50 MG ORAL TABLET 1 tab By Mouth at bedtime SERTRALINE HCL 16502671651 Active Nanette Mccollum MD Active FLUTICASONE PROPIONATE 50 MCG/ACT NASAL SUSPENSION 1 spray in each nostril Twice a Day FLUTICASONE PROPIONATE 81163892842 Active Nanette Mccollum MD Active LYRICA 100MG CAP TAKE 1 CAPSULE BY MOUTH THREE TIMES DAILY PREGABALIN 00656008099 [facility] FARXIGA 10 MG ORAL TABLET 1 tab By Mouth Every day DAPAGLIFLOZIN PROPANEDIOL 52305852512 Active Nanette Mccollum MD Active FLUCONAZOLE 150 MG ORAL TABLET 1 tab By Mouth once As Needed FLUCONAZOLE 68536360606 Active Nanette Mccollum MD Active CLOTRIMAZOLE-BETAMETHASONE 1-0.05 % EXTERNAL CREAM apply topically Twice a Day CLOTRIMAZOLE-BETAMETHASONE 40282816825 Active Nanette Mccollum MD Active NYSTATIN 710738 UNIT/GM EXTERNAL POWDER apply to affected area four times a day NYSTATIN 55782979106 Active Nanette Mccollum MD Active ONETOUCH LANCETS use to test blood sugars Twice a Day LANCETS [facility] LINUX NETWORK SYSTEMS ADMINISTRATOR Active ADVOCATE INSULIN PEN NEEDLES 31G X 5 MM use as directed daily INSULIN PEN NEEDLE 81440096966 Active Nanette Mccollum MD Active ADVOCATE INSULIN PEN NEEDLES 31G X 8 MM use daily SC to inject insulin INSULIN PEN NEEDLE 42375739862 Active Nanette Mccollum MD Active Fatsoma ULTRA 2 w/Device KIT Use as directed to test blood sugar 2 times a day BLOOD GLUCOSE MONITORING SUPPL 11177658779 Active Pal[facility] [employer] LINUX NETWORK SYSTEMS ADMINISTRATOR Active Fatsoma ULTRA BLUE IN VITRO STRIP Use as directed to test blood sugar 2 times a day. GLUCOSE BLOOD 50706500914 Active Paloma [employer] LINUX NETWORK SYSTEMS ADMINISTRATOR Active RELION SHORT PEN NEEDLES 31G X 8 MM Use to dose insulin 2 times a day. INSULIN PEN NEEDLE 75278771909 Active Tara Holland [employer] SOFTWARE SPECIALIST Active B-12 COMPLIANCE INJECTION 1000 MCG/ML INJECTION KIT 1mL Subcutaneous every day for 1 week, then every week for 1 month, CYANOCOBALAMIN 31272892941 Active Em Mendoza [employer] Active SIMVASTATIN 20 MG ORAL TABLET 1 By Mouth take at bedtime SIMVASTATIN 91598307814 Active Nanette Mccollum MD Active LISINOPRIL 5 MG ORAL TABLET 1 by mouth every day LISINOPRIL 54153704719 Active Nanette Mccollum MD Active GLUCOPHAGE 1000 MG ORAL TABLET One twice a day METFORMIN HCL 85274240424 Active Nanette Mccollum MD Active CEPHALEXIN 500 MG ORAL CAPSULE 1 cap by mouth three times a day CEPHALEXIN 500 MG ORAL CAPSULE 269604 CEPHALEXIN Inactive SERTRALINE HCL 25 MG ORAL TABLET 1 tab By Mouth at bedtime SERTRALINE HCL 25 MG ORAL TABLET 842021 SERTRALINE HCL Inactive INTRAROSA 6.5 MG VAGINAL [...] x1 dose DIFLUCAN 150 MG ORAL TABLET 831816 FLUCONAZOLE Inactive GLYBURIDE 5 MG ORAL TABLET 1 by mouth twice a day GLYBURIDE 5 MG ORAL TABLET 645498 GLYBURIDE Inactive SULFAMETHOXAZOLE-TRIMETHOPRIM 800-160 MG ORAL TABLET 1 tab By Mouth Twice a Day SULFAMETHOXAZOLE-TRIMETHOPRIM 800-160 MG ORAL TABLET 19820412 SULFAMETHOXAZOLE-TRIMETHOPRIM Inactive VICTOZA 18 MG/3ML SUBCUTANEOUS SOLUTION PEN-INJECTOR Inject 1.8mg sq Every Day VICTOZA 18 MG/3ML SUBCUTANEOUS SOLUTION PEN-INJECTOR LIRAGLUTIDE Inactive PYRIDIUM 100 MG ORAL TABLET 1 by mouth 3 times a day as needed PYRIDIUM 100 MG ORAL TABLET 1937657 PHENAZOPYRIDINE HCL Inactive SULFAMETHOXAZOLE-TRIMETHOPRIM 800-160 MG ORAL TABLET 1 tab By Mouth Twice a Day SULFAMETHOXAZOLE-TRIMETHOPRIM 800-160 MG ORAL TABLET 19820412 SULFAMETHOXAZOLE-TRIMETHOPRIM Inactive JANUVIA 100 MG ORAL TABLET 1 tab By Mouth Every day JANUVIA 100 MG ORAL TABLET SITAGLIPTIN PHOSPHATE Inactive AMOXICILLIN 500 MG ORAL CAPSULE Take 4 tabs By Mouth one hour before dental appointment. AMOXICILLIN 500 MG ORAL CAPSULE 256028 AMOXICILLIN Inactive LYRICA 75 MG ORAL CAPSULE [...] days AMOXICILLIN-POT CLAVULANATE 500-125 MG ORAL TABLET 869458 AMOXICILLIN-POT CLAVULANATE Inactive CHERATUSSIN AC 100-10 MG/5ML ORAL SOLUTION 5 ml By Mouth Four Times a Day As Needed CHERATUSSIN AC 100-10 MG/5ML ORAL SOLUTION 423169 GUAIFENESIN-CODEINE Inactive AZITHROMYCIN 250 MG ORAL TABLET 2 tablets by mouth on day one then one tablet by mouth each day for a total of 5 days AZITHROMYCIN 250 MG ORAL TABLET 441903 AZITHROMYCIN Inactive GLYBURIDE 5 MG ORAL TABLET 2 tabs by mouth twice a day GLYBURIDE 5 MG ORAL TABLET 934002 GLYBURIDE Inactive [id number]-HE 3.5-86156-3 OTIC SUSPENSION 2 drop in ears Three Times a Day [id number]-GB 3.5-79395-6 OTIC SUSPENSION 587706 [id number] Inactive TESSALON PERLES 100 MG ORAL CAPSULE 1 by mouth 3 times a day as needed for cough TESSALON PERLES 100 MG ORAL CAPSULE 829559 BENZONATATE Inactive VICTOZA 18 MG/3ML SUBCUTANEOUS SOLUTION [...] SOLUTION PEN-INJECTOR 20 units SC Every day ASHLEY SOFIA 300 UNIT/ML SUBCUTANEOUS SOLUTION PEN-INJECTOR INSULIN GLARGINE Inactive TRAMADOL HCL 50 MG ORAL TABLET 1 tablets by mouth 3 times a day as needed for pain TRAMADOL HCL 50 MG ORAL TABLET 307396 TRAMADOL HCL Inactive AUGMENTIN 500-125 MG ORAL TABLET 1 by mouth twice a day AUGMENTIN 500-125 MG ORAL TABLET 286921 AMOXICILLIN-POT CLAVULANATE Inactive BROMFED DM 30-2-10 MG/5ML ORAL SYRUP 10 mL every six hours as needed for cough/congestion BROMFED DM 30-2-10 MG/5ML ORAL SYRUP 7222864 [id number] Inactive DIFLUCAN 150 MG ORAL TABLET 1 by mouth x1 dose today DIFLUCAN 150 MG ORAL TABLET 749572 FLUCONAZOLE Inactive CLOTRIMAZOLE-BETAMETHASONE 1-0.05 % EXTERNAL CREAM Apply twice daily CLOTRIMAZOLE-BETAMETHASONE 1-0.05 % EXTERNAL CREAM 861522 CLOTRIMAZOLE-BETAMETHASONE Inactive BACTRIM DS 800-160 MG ORAL TABLET 1 tablet by mouth twice daily for 10 days BACTRIM DS 800-160 MG ORAL TABLET 675210 SULFAMETHOXAZOLE-TRIMETHOPRIM Inactive HYDROCORTISONE 2.5 % EXTERNAL CREAM apply to affected area twice a day HYDROCORTISONE 2.5 % EXTERNAL CREAM 798808 HYDROCORTISONE Inactive BYETTA 10 MCG PEN 10 MCG/0.04ML SUBCUTANEOUS SOLUTION PEN-INJECTOR 10 mcg sc Twice a Day BYETTA 10 MCG PEN 10 MCG/0.04ML SUBCUTANEOUS SOLUTION PEN-INJECTOR EXENATIDE Inactive DIFLUCAN 150 MG ORAL TABLET 1 by mouth DIFLUCAN 150 MG ORAL TABLET 711889 FLUCONAZOLE Inactive GLYBURIDE 5 MG ORAL TABLET 2 tablets twice daily GLYBURIDE 5 MG ORAL TABLET 206203 GLYBURIDE Inactive DIFLUCAN 150 MG ORAL TABLET 1 by mouth DIFLUCAN 150 MG ORAL TABLET 255077 FLUCONAZOLE Inactive BACTRIM DS 800-160 MG ORAL TABLET 1 tab by mouth twice a day BACTRIM DS 800-160 MG ORAL TABLET 710322 TRIMETHOPRIM-SULFAMETHOXAZOLE Inactive KEFLEX 500 MG ORAL CAPSULE take one caps Twice a Day for 7 days KEFLEX 500 MG ORAL CAPSULE 689417 CEPHALEXIN Inactive LANTUS 100 UNIT/ML SUBCUTANEOUS SOLUTION Take 35u SC every evening. LANTUS 100 UNIT/ML SUBCUTANEOUS SOLUTION INSULIN GLARGINE Inactive BYETTA 10 MCG PEN 10 MCG/0.04ML SUBCUTANEOUS SOLUTION PEN-INJECTOR 10mcg SC bid BYETTA 10 MCG PEN 10 MCG/0.04ML SUBCUTANEOUS SOLUTION PEN-INJECTOR EXENATIDE Inactive BUSPIRONE HCL 10 MG ORAL TABLET 1 by mouth twice a day for anxiety BUSPIRONE HCL 10 MG ORAL TABLET 999395 BUSPIRONE HCL Inactive CELEBREX 200 MG ORAL CAPSULE 1 by mouth every day CELEBREX 200 MG ORAL CAPSULE 643236 CELECOXIB Inactive CLOTRIMAZOLE-BETAMETHASONE 1-0.05 % EXTERNAL CREAM Apply to affected area Three Times a Day CLOTRIMAZOLE-BETAMETHASONE 1-0.05 % EXTERNAL CREAM 620590 CLOTRIMAZOLE-BETAMETHASONE Inactive GLYBURIDE 5 MG ORAL TABLET 1 by mouth twice a day GLYBURIDE 5 MG ORAL TABLET 756839 GLYBURIDE Inactive HYDROCHLOROTHIAZIDE 25 MG ORAL TABLET 1 by mouth every day HYDROCHLOROTHIAZIDE 25 MG ORAL TABLET 401024 HYDROCHLOROTHIAZIDE Inactive TRAMADOL HCL 50 MG ORAL TABLET Two as needed up to every 8 hours TRAMADOL HCL 50 MG ORAL TABLET 780526 TRAMADOL HCL Inactive CLOTRIMAZOLE 1 % EXTERNAL CREAM apply Twice a Day to affected areas CLOTRIMAZOLE 1 % EXTERNAL CREAM 164632 CLOTRIMAZOLE Inactive FLAGYL 500 MG ORAL TABLET 1 tab by mouth twice a day for 7 days FLAGYL 500 MG ORAL TABLET 710708 METRONIDAZOLE Inactive TRAZODONE HCL 50 MG ORAL TABLET 1 by mouth nightly at bedtime TRAZODONE HCL 50 MG ORAL TABLET 061879 TRAZODONE HCL Inactive BYETTA 10 MCG PEN 10 MCG/0.04ML SUBCUTANEOUS SOLUTION PEN-INJECTOR Inject twice a day BYETTA 10 MCG PEN 10 MCG/0.04ML SUBCUTANEOUS SOLUTION PEN-INJECTOR EXENATIDE Inactive HYDROCODONE-ACETAMINOPHEN 7.5-325 MG ORAL TABLET take one tablet twice a ay HYDROCODONE-ACETAMINOPHEN 7.5-325 MG ORAL TABLET 585557 HYDROCODONE-ACETAMINOPHEN Inactive WELLBUTRIN SR 150 MG ORAL TABLET EXTENDED RELEASE 12 HOUR 1 by mouth twice a day WELLBUTRIN SR 150 MG ORAL TABLET EXTENDED RELEASE 12 HOUR BUPROPION HCL Inactive ATENOLOL 50 MG ORAL TABLET At bedtime ATENOLOL 50 MG ORAL TABLET 168344 ATENOLOL Inactive LYRICA 100 MG ORAL CAPSULE Take 1 capsule by mouth Three Times a Day LYRICA 100 MG ORAL CAPSULE PREGABALIN Inactive CLINDAMYCIN HCL 300 MG ORAL CAPSULE one tablet by mouth every 6 hours CLINDAMYCIN HCL 300 MG ORAL CAPSULE 548823 CLINDAMYCIN HCL Inactive TRAMADOL HCL ER (BIPHASIC) [...] One dayly CELEXA 20 MG ORAL TABLET 397454 CITALOPRAM HYDROBROMIDE Inactive GLIPIZIDE ER 5 MG ORAL TABLET EXTENDED RELEASE 24 HOUR One 3 times a day GLIPIZIDE ER 5 MG ORAL TABLET EXTENDED RELEASE 24 HOUR GLIPIZIDE Inactive CEPHALEXIN 500 MG ORAL CAPSULE 1 cap by mouth three times a day CEPHALEXIN 06028579736 No Longer Active Nanette Mccollum MD Active SERTRALINE HCL 25 MG ORAL TABLET 1 tab By Mouth at bedtime SERTRALINE HCL 28884013228 No Longer Active Nanette Mccollum MD Active INTRAROSA 6.5 MG VAGINAL INSERT isert PV at bedtime PRASTERONE 00912928246 No Longer Active Nanette Mccollum MD Active PREMARIN 0.625 MG/GM VAGINAL CREAM 1 gm PV nightly at bedtime 3 times per week ESTROGENS, CONJUGATED VAGINAL 33461046708 No Longer Active Nanette Mccollum MD Active BACTRIM DS 800-160 MG ORAL TABLET 1 tab by mouth twice a day TRIMETHOPRIM-SULFAMETHOXAZOLE 13773654864 No Longer Active Nanette Mccollum MD Active DIFLUCAN 150 MG ORAL TABLET 1 by mouth x1 dose FLUCONAZOLE 49444378557 No Longer Active Nanette Mccollum MD Active GLYBURIDE 5 MG ORAL TABLET 1 by mouth twice a day GLYBURIDE 52305114741 No Longer Active Nanette Mccollum MD Active SULFAMETHOXAZOLE-TRIMETHOPRIM 800-160 MG ORAL TABLET 1 tab By Mouth Twice a Day SULFAMETHOXAZOLE-TRIMETHOPRIM 59361695839 No Longer Active Nanette Mccollum MD Active TRULICITY 1.5 MG/0.5ML SUBCUTANEOUS SOLUTION PEN-INJECTOR 0.25 ml SC Every week DULAGLUTIDE 31405454577 No Longer Active Nanette Mccollum MD Active VICTOZA 18 MG/3ML SUBCUTANEOUS SOLUTION PEN-INJECTOR Inject 1.8mg sq Every Day LIRAGLUTIDE 40072856287 No Longer Active Nanette Mccollum MD Active PYRIDIUM 100 MG ORAL TABLET 1 by mouth 3 times a day as needed PHENAZOPYRIDINE HCL 81613727483 No Longer Active Nanette Mccollum MD Active SULFAMETHOXAZOLE-TRIMETHOPRIM 800-160 MG ORAL TABLET 1 tab By Mouth Twice a Day SULFAMETHOXAZOLE-TRIMETHOPRIM 10002019018 No Longer Active Nanette Mccollum MD Active JANUVIA 100 MG ORAL TABLET 1 tab By Mouth Every day SITAGLIPTIN PHOSPHATE 02902454427 No Longer Active Nanette Mccollum MD Active AMOXICILLIN 500 MG ORAL CAPSULE Take 4 tabs By Mouth one hour before dental appointment. AMOXICILLIN 64423590678 No Longer Active Dayne Lal DDS Active LYRICA 75 MG ORAL CAPSULE 2 caps By Mouth Twice a Day PREGABALIN 60997772799 No Longer Active Nanette Mccollum MD Active TYLENOL WITH CODEINE #3 300-30 MG ORAL TABLET 1 by mouth every 8 hours as needed ACETAMINOPHEN-CODEINE 28923750936 No Longer Active Nanette Mccollum MD Active AMOXICILLIN-POT CLAVULANATE 500-125 MG ORAL TABLET 1 tab By Mouth Twice a Day x 10 days AMOXICILLIN-POT CLAVULANATE 39057911849 No Longer Active Nanette Mccollum MD Active CHERATUSSIN AC 100-10 MG/5ML ORAL SOLUTION 5 ml By Mouth Four Times a Day As Needed GUAIFENESIN-CODEINE 52196016305 No Longer Active Nanette Mccollum MD Active AZITHROMYCIN 250 MG ORAL TABLET 2 tablets by mouth on day one then one tablet by mouth each day for a total of 5 days AZITHROMYCIN 68774983584 No Longer Active Nanette Mccollum MD Active GLYBURIDE 5 MG ORAL TABLET 2 tabs by mouth twice a day GLYBURIDE 15401906455 No Longer Active Nanette Mccollum MD Active IZJUHAHI-LMKVLVBVN-QD 3.5-54463-5 OTIC SUSPENSION 2 drop in ears Three Times a Day OJZLLSQA-OEYRQEJZO-TA 62872637951 No Longer Active Nanette Mccollum MD Active TESSALON PERLES 100 MG ORAL CAPSULE 1 by mouth 3 times a day as needed for cough BENZONATATE 55054640726 No Longer Active Nanette Mccollum MD Active VICTOZA 18 MG/3ML SUBCUTANEOUS SOLUTION PEN-INJECTOR 1.8 mg SC Every day LIRAGLUTIDE 60032072516 No Longer Active Paloma Vaughn [facility] Active LANTUS 100 UNIT/ML SUBCUTANEOUS SOLUTION 20 units SC at bedtime INSULIN GLARGINE 25615332353 No Longer Active Nanette Mccollum MD Active TRADJENTA 5 MG ORAL TABLET 1 tab By Mouth Every day LINAGLIPTIN 72403045457 No Longer Active Nanette Mccollum MD Active JANUVIA 100 MG ORAL TABLET 1 tab By Mouth Every day SITAGLIPTIN PHOSPHATE 81204011187 No Longer Active Nanette Mccollum MD Active LEVEMIR FLEXTOUCH 100 UNIT/ML SUBCUTANEOUS SOLUTION PEN-INJECTOR 50 units Twice a Day s/c INSULIN DETEMIR 94130100989 No Longer Active Donna Thakur MA Active LEVEMIR FLEXTOUCH 100 UNIT/ML SUBCUTANEOUS SOLUTION PEN-INJECTOR 20 units SC Every day INSULIN DETEMIR 21015931843 No Longer Active Marin Lewis MD Active TOUJEO SOLOSTAR 300 UNIT/ML SUBCUTANEOUS SOLUTION PEN-INJECTOR 20 units SC Every day INSULIN GLARGINE 73039622097 No Longer Active Nanette Mccollum MD Active TRAMADOL HCL 50 MG ORAL TABLET 1 tablets by mouth 3 times a day as needed for pain TRAMADOL HCL 84197458608 No Longer Active Nanette Mccollum MD Active AUGMENTIN 500-125 MG ORAL TABLET 1 by mouth twice a day AMOXICILLIN-POT CLAVULANATE 89708505218 No Longer Active Em GRAHAM Active BROMFED DM 30-2-10 MG/5ML ORAL SYRUP 10 mL every six hours as needed for cough/congestion [id number] 64072773275 No Longer Active Em GRAHAM Active DIFLUCAN 150 MG ORAL TABLET 1 by mouth x1 dose today FLUCONAZOLE 68711991040 No Longer Active Em GRAHAM Active CLOTRIMAZOLE-BETAMETHASONE 1-0.05 % EXTERNAL CREAM Apply twice daily CLOTRIMAZOLE-BETAMETHASONE 97942658137 No Longer Active Em GRAHAM Active BACTRIM DS 800-160 MG ORAL TABLET 1 tablet by mouth twice daily for 10 days SULFAMETHOXAZOLE-TRIMETHOPRIM 15286271037 No Longer Active Em GRAHAM Active HYDROCORTISONE 2.5 % EXTERNAL CREAM apply to affected area twice a day HYDROCORTISONE 62782038270 No Longer Active Em GRAHAM Active BYETTA 10 MCG PEN 10 MCG/0.04ML SUBCUTANEOUS SOLUTION PEN-INJECTOR 10 mcg sc Twice a Day EXENATIDE 06808674922 No Longer Active Nanette Mccollum MD Active DIFLUCAN 150 MG ORAL TABLET 1 by mouth FLUCONAZOLE 91988901829 No Longer Active Em GRAHAM Active GLYBURIDE 5 MG ORAL TABLET 2 tablets twice daily GLYBURIDE 34149269231 No Longer Active Nanette Mccollum MD Active DIFLUCAN 150 MG ORAL TABLET 1 by mouth FLUCONAZOLE 62967574715 No Longer Active Marin Lewis MD Active BACTRIM DS 800-160 MG ORAL TABLET 1 tab by mouth twice a day TRIMETHOPRIM-SULFAMETHOXAZOLE 69592431957 No Longer Active Marin Lewis MD Active KEFLEX 500 MG ORAL CAPSULE take one caps Twice a Day for 7 days CEPHALEXIN 34759595898 No Longer Active Diamond Bryant MD Active LANTUS 100 UNIT/ML SUBCUTANEOUS SOLUTION Take 35u SC every evening. INSULIN GLARGINE 24657432607 No Longer Active Marin Lewis MD Active BYETTA 10 MCG PEN 10 MCG/0.04ML SUBCUTANEOUS SOLUTION PEN-INJECTOR 10mcg SC bid EXENATIDE 14433486780 No Longer Active Marin Lewis MD Active BUSPIRONE HCL 10 MG ORAL TABLET 1 by mouth twice a day for anxiety BUSPIRONE HCL 66343421837 No Longer Active Marin Lewis MD Active CELEBREX 200 MG ORAL CAPSULE 1 by mouth every day CELECOXIB 92756868310 No Longer Active Marin Lewis MD Active CLOTRIMAZOLE-BETAMETHASONE 1-0.05 % EXTERNAL CREAM Apply to affected area Three Times a Day CLOTRIMAZOLE-BETAMETHASONE 72708686279 No Longer Active Diamond Bryant MD Active GLYBURIDE 5 MG ORAL TABLET 1 by mouth twice a day GLYBURIDE 95288871486 No Longer Active Apryl Ridley D.O. Active HYDROCHLOROTHIAZIDE 25 MG ORAL TABLET 1 by mouth every day HYDROCHLOROTHIAZIDE 10623855695 No Longer Active Marin Lewis MD Active TRAMADOL HCL 50 MG ORAL TABLET Two as needed up to every 8 hours TRAMADOL HCL 33047706198 No Longer Active Nikunj Hammond DO Active CLOTRIMAZOLE 1 % EXTERNAL CREAM apply Twice a Day to affected areas CLOTRIMAZOLE 97414290844 No Longer Active China Doe MD Active FLAGYL 500 MG ORAL TABLET 1 tab by mouth twice a day for 7 days METRONIDAZOLE 49095348639 No Longer Active Diamond Bryant MD Active TRAZODONE HCL 50 MG ORAL TABLET 1 by mouth nightly at bedtime TRAZODONE HCL 94551375305 No Longer Active Marin Lewis MD Active NYSTATIN 652244 UNIT/GM EXTERNAL CREAM Apply to affectted area TID NYSTATIN 24800974263 No Longer Active Maki King DO Active BYETTA 10 MCG PEN 10 MCG/0.04ML SUBCUTANEOUS SOLUTION PEN-INJECTOR Inject twice a day EXENATIDE 75411713010 No Longer Active Apryl Ridley D.O. Active HYDROCODONE-ACETAMINOPHEN 7.5-325 MG ORAL TABLET take one tablet twice a ay HYDROCODONE-ACETAMINOPHEN 89370768834 No Longer Active Diamond Bryant MD Active WELLBUTRIN SR 150 MG ORAL TABLET EXTENDED RELEASE 12 HOUR 1 by mouth twice a day BUPROPION HCL 97733119765 No Longer Active China Doe MD Active ATENOLOL 50 MG ORAL TABLET At bedtime ATENOLOL 04094654827 No Longer Active Marin Lewis MD Active LYRICA 100 MG ORAL CAPSULE Take 1 capsule by mouth Three Times a Day PREGABALIN 29155067837 No Longer Active Nanette Mccollum MD Active CLINDAMYCIN HCL 300 MG ORAL CAPSULE one tablet by mouth every 6 hours CLINDAMYCIN HCL 01428627029 No Longer Active Patel Rojas MD Active TRAMADOL HCL ER (BIPHASIC) 100 MG ORAL TABLET EXTENDED RELEASE 24 HOUR One twice a day TRAMADOL HCL 56541972014 No Longer Active Patel Rojas MD Active BD PEN NEEDLE MINI U/F 31G X 5 MM use as directed INSULIN PEN NEEDLE 75465143262 No Longer Active Marin Lewis MD Active CELEXA 20 MG ORAL TABLET One dayly CITALOPRAM HYDROBROMIDE 08379299799 No Longer Active Patel Rojas MD Active GLIPIZIDE ER 5 MG ORAL TABLET EXTENDED RELEASE 24 HOUR One 3 times a day GLIPIZIDE 22096958555 No Longer Active Patel Rojas MD Active NORTRIPTYLINE HCL 25 MG ORAL CAPSULE One daily at bedtime NORTRIPTYLINE HCL 76479688070 No Longer Active Patel Rojas MD Active TRIAMTERENE-HCTZ 75-50 MG ORAL TABLET One daily TRIAMTERENE-HCTZ 98638120177 No Longer Active Tara Holland [facility] SOFTWARE SPECIALIST Active Immunizations Vaccine Administration Date Value Standard Description influenza immunization (Flu Vax) has been administered given influenza virus vaccine, unspecified formulation influenza immunization (Flu Vax) has been administered given influenza virus vaccine, unspecified formulation influenza immunization (Flu Vax) has been administered given influenza virus vaccine, unspecified formulation Vital Signs Date Name Value Unit Range Description blood pressure, diastolic 77 mm[Hg] BP quiroz blood pressure, systolic 119 mm[Hg] BP sys height E&M 67 [in_us] Bdy height pulse rate E&M 72 /min Heart rate respiratory rate E&M 21 /min Resp rate temperature E&M 98.0 [degF] Body temperature weight E&M 197 [lb_av] Weight Measured blood pressure, diastolic 76 [...] temperature weight E&M 253.50 [lb_av] Weight Measured Diagnostic Results Date Name [...] 13 mg/dL 6-24 Office Visit: Adult Followup Rm1 - Urinalysis leukocyte esterase, urine, by dipstick negative Lab Report: CBC With Differential/Platelet, Comp. Metabolic Panel (14), ... - Hematology mean corpuscular hemoglobin concentration, RBC 31.7 G/DL % 31.5-35.7 Office Visit: Adult Followup Rm1 - Urinalysis nitrite, urine, semiquantitative negative Lab Report: CBC With Differential/Platelet, Comp. Metabolic Panel (14), ... 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 bilirubin, serum, total 0.4 mg/dL 0.0-1.2 Lab Report: CBC With Differential/Platelet, Comp. Metabolic Panel (14), ... - Hematology Eosinophil Absolute Count 0.2 X10E3/UL 10*3/uL 0.0-0.4 Office Visit: Adult Followup Rm1 - Urinalysis appearance, urine clear blood in [...] microscopic examination MICRON Office Visit: Adult Followup Rm1 - Urinalysis pH, urine, semiquantitative 5.5 Lab Report: CBC With Differential/Platelet, Comp. Metabolic [...] fluid 1.028 1.005-1.030 Office Visit: Adult Followup Rm1 - Urinalysis protein, urine, semiquantitative (dipstick) negative [...] 26.6-33.0 Office Visit: Adult Followup Dr Mccollum 1 - Chemistry blood glucose, fasting 236 mg/dL Office Visit: Adult Followup [facility] - Urinalysis specific gravity, urine 1.005 Lab [...] 8.4 % 4.8-5.6 Office Visit: Adult Followup [facility] - Urinalysis glucose, urine, semiquantitative negative Lab Report: CBC With [...] 68 mg/dL 65-99 Office Visit: Adult Followup Rm1 - Urinalysis urobilinogen, urine, semiquantitative (dipstick) negative Lab Report: CBC With Differential/Platelet, Comp. Metabolic Panel (14), ... - Hematology monocyte count, blood, automated 0.9 X10E3/UL 10*3/uL 0.1-0.9 Office Visit: Adult Followup 1 - Urinalysis ketones, urine, by test strip negative Lab Report: CBC With Differential/Platelet, Comp. Metabolic Panel (14), ... 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 Patient Exp Problem - [id number] Nanette Mccollum MD CPT-48892 [facility] 13:28:43 CDT Est Patient Exp Problem - 88531 Nanette Mccollum MD CPT-94966 [facility] 16:38:35 CDT Est Patient Exp Problem - 08510 Nanette Mccollum MD CPT-87196 [facility] 14:37:29 CDT Est Patient Exp Problem - 32032 Nanette Mccollum MD CPT-35149 [facility] 16:36:50 CDT Est Patient Detailed - 68817 Nanette Mccollum MD CPT-82616 [facility] 11:46:27 CDT Est Patient Exp Problem - 05592 Em Mendoza [facility] CPT-39986 [facility] 15:21:02 CDT Est Patient Exp Problem - 58322 Nanette Mccollum MD CPT-56892 [facility] 19:45:00 CDT Est Patient Exp Problem - 25510 Nanette Mccollum MD CPT-11231 [facility] 10:50:55 OLEOMARGARINE MAKER Est Patient Detailed - 53114 Nanette Mccollum MD CPT-36297 [facility] 15:08:16 OLEOMARGARINE MAKER Est Patient Exp Problem - 87987 Nanette Mccollum MD CPT-47364 [facility] 12:39:15 OLEOMARGARINE MAKER Est Patient Exp Problem - 95974 Nanette Mccollum MD CPT-70762 [facility] 13:24:52 CDT Est Patient Exp Problem - 04957 Nanette Mccollum MD CPT-77755 [facility] 15:28:02 CDT Est Patient Exp Problem - 76320 Nanette Mccollum MD CPT-61823 [facility] 08:52:44 CDT Est Patient Exp Problem - 38731 Nanette Mccollum MD CPT-56772 [facility] 14:14:09 CDT Est Patient Exp Problem - 53059 Nanette Mccollum MD CPT-79059 [facility] 12:02:19 OLEOMARGARINE MAKER Est Patient Exp Problem - 89203 Nanette Mccollum MD CPT-53609 [facility] 16:39:15 OLEOMARGARINE MAKER Est Patient Exp Problem - 57828 Nanette Mccollum MD CPT-53122 [facility] 07:52:32 OLEOMARGARINE MAKER Est Patient Exp Problem - 51584 Marin Lewis MD CPT-14845 [facility] 11:04:58 OLEOMARGARINE MAKER Est Patient Exp Problem - 39800 Nanette Mccollum MD CPT-72843 [facility] 09:48:54 OLEOMARGARINE MAKER Est Patient Exp Problem - 59509 Em Mendoza [facility] CPT-09661 [facility] 14:52:28 CDT Est Patient Exp Problem - 04556 Em Mendoza [facility] CPT-78453 [facility] 09:27:32 CDT Est Patient Exp Problem - 96808 Em Mendoza [facility] CPT-76174 [facility] 09:21:49 CDT Est Patient Exp Problem - 88715 Em Kelly [facility] CPT-74729 [facility] 12:01:51 OLEOMARGARINE MAKER Ofc Vst, Est Level III Marin Lewis MD CPT-06589 [facility] 21:14:38 CDT Ofc Vst, Est Level III Diamond Bryant MD CPT-46988 [facility] 19:44:39 CDT Est Patient Exp Problem - 68028 Diamond Bryant MD CPT-37227 [facility] 18:36:12 CDT Est Patient Exp Problem - 21792 Apryl Ridley D.O. CPT-84324 [facility] 14:03:49 CDT Est Patient Exp Problem - 81678 Apryl Ridley D.O. CPT-85825 [facility] 09:37:09 OLEOMARGARINE MAKER Est Patient Exp Problem - 23526 Apryl Rosales.O. CPT-73729 [facility] 13:33:56 OLEOMARGARINE MAKER Est Patient Exp Problem - 76929 Diamond Bryant MD CPT-40856 [facility] 16:00:53 OLEOMARGARINE MAKER Est Patient Exp Problem - 81489 Nikunj Hammond DO CPT-69701 [facility] 09:56:19 CDT Est Patient Exp Problem - 16615 China Doe MD CPT-84667 [facility] 09:10:49 CDT Est Patient Exp Problem - 99969 China Doe MD CPT-64217 [facility] 17:40:28 CDT Ofc Vst, Est Level III China Doe MD CPT-76740 [facility] 15:08:09 CDT Est Patient Exp Problem - 72227 Nikunj Hammond DO CPT-53208 [facility] 10:49:40 CDT Est Patient Exp Problem - 17087 Patel Rojas MD CPT-96602 [facility] 11:03:25 CDT Est Patient Exp Problem - 82980 Patel Rojas MD CPT-76133 [facility] 12:22:50 CDT Est Patient Exp Problem - 76300 Patel Rojas MD CPT-91046 [facility] 16:22:04 OLEOMARGARINE MAKER Est Patient Problem Focus - 77903 Patel Rojas MD CPT-71894 [facility] 17:18:22 OLEOMARGARINE MAKER Est Patient Exp Problem - 58060 Patel Rojas MD CPT-14979 [facility] 16:08:42 OLEOMARGARINE MAKER Est Patient Exp Problem - 28121 Patel Rojas MD CPT-57992 [facility] 11:40:21 OLEOMARGARINE MAKER Est Patient Exp Problem - 26119 Patel Rojas MD CPT-24560 [facility] 13:43:27 CDT Est Patient Exp Problem - 81084 Patel Rojas MD CPT-67478 [facility] Procedures Code Procedure Name Date Entry Date Standard Description CPT-75057 EKG - 12 Leads with Interpretation and Report 12:09:01 CDT CPT-18238 Urinalysis - Dip only - In House 10:37:19 OLEOMARGARINE MAKER CPT-00244 Urinalysis - Dip only - In House 16:38:34 CDT CPT-98683 HEMOGLOBIN A1C - In House 14:37:29 CDT CPT-33643 Urinalysis - Dip only - In House 16:36:49 CDT CPT-13711 Urinalysis - Dip only - In House 11:46:26 CDT CPT-39244 Urinalysis - Dip only - In House 15:08:15 OLEOMARGARINE MAKER CPT-50872 INFLUENZA VACCINE QUADRIVALENT 3 YRS PLUS IM 13:24:59 CDT CPT-21653 Urinalysis - Dip only - In House 08:52:44 CDT CPT-41474 Glucose Stick 16:39:15 OLEOMARGARINE MAKER CPT-53674 Diagnostic evaluation (no medical) - 67795 15:56:13 OLEOMARGARINE MAKER CPT-94848 INFLUENZA VAC 4 VALENT PRSRV FREE 3 YRS PLUS IM 09:48:54 OLEOMARGARINE MAKER CPT-50226 Urinalysis - Dip only - In House 14:52:30 CDT CPT-57573 REMOVAL SK TGS SOCK KNITTER FIBRQ TAGS ANY AREA UP&W/15< 13:08:43 OLEOMARGARINE MAKER CPT-02759 Influenza - Adult - Injection 14:23:29 CDT CPT-06422 Est Patient Well Exam (40 - 64 Yrs) - 94854 14:23:19 CDT CPT-27750 Influenza - Adult - Injection 17:40:58 CDT CPT-88998 Influenza - Adult - Injection 16:08:42 OLEOMARGARINE MAKER
[2018-04-27 17:00] VITALS: BP 118/79
--- NOTE | 2018-04-28 01:21 | Operative Report ---
DATE OF PROCEDURE: 04/27/2018 SURGEON: Leeroy Calle DPM ASSISTANT [employer] COACH: None. PREOPERATIVE DIAGNOSES: 1. Hammertoes of 2nd, 3rd, 4th, and 5th toes to the right foot. 2. Diabetic ulcer to the lateral right 4th toe. POSTOPERATIVE DIAGNOSES: 1. Hammertoes of 2nd, 3rd, 4th, and 5th toes to the right foot. 2. Diabetic ulcer to the lateral right 4th toe. PROCEDURE PERFORMED: 1. Hammertoe correction to the 2nd toe of the right foot. 2. Hammertoe correction to the 3rd toe of the right foot. 3. Hammertoe correction to the 4th toe of the right foot. 4. Hammertoe correction to the 5th toe of the right foot. 5. Tenotomy and capsulotomy of the right 4th metatarsophalangeal joint. ANESTHESIA: General with a total of 30 mL of 1:1 mix of 1% lidocaine plain and 0.5% Marcaine plain. PATHOLOGY: The head of the proximal phalanx of the 4th toe was sent for pathology. ESTIMATED BLOOD LOSS: Less than 3 mL. COMPLICATIONS: None. GRAFTS: None. FINDINGS: It is noted that the head of the proximal phalanx to its entirety as well as the middle phalanx was noted to be hard and viable. There was no soft bone noted at this time. INDICATIONS FOR PROCEDURE: The patient is a very pleasant 48-year-old female with a history of diabetes mellitus and severe peripheral neuropathy, who has had an ulceration to the lateral aspect of the right 4th toe for quite sometime and at this time, the patient has hammertoes to all digits of 2 through 5 and thus because of the prominent bone and the contractures, it was creating rubbing and irritation with the bone prominence, therefore preventing the ulceration from healing. At this time, because of the deformities and the chronicity of the ulceration, it was felt that the best option would be to undergo a hammertoe correction, removing all the prominence at this point and realigning the toes. Therefore, the above procedure was indicated and at this point, all the risks and complications of the surgery were explained to the patient, including infection, pain, swelling, numbness, bleeding, delayed healing, nonhealing, recurrence, and need for further surgery. There were no guarantees implied or given at this time. NARRATIVE OF PROCEDURE: Preoperatively, the patient was identified as Heidi Snow. The right foot was marked and 30 minutes prior to the surgery, the patient was administered 2 g of Ancef. The right foot was then marked and she was taken to the OR and placed on the OR table in a supine position. After a successful general anesthetic and appropriate time-out was performed, then the right foot was infiltrated with a total of 30 mL of 1:1 mix of 1% lidocaine plain and 0.5% Marcaine plain. The right ankle tourniquet was applied. Again, the right foot was then prepped and draped in the usual sterile manner. The mini C-arm was utilized at this point to take a picture and at this time, one can see the deformities and there were also some configurations to the 4th proximal phalanx for possibly a fracturing at that time. At this point, the right foot was now elevated and Esmarch was utilized and it was taken with the . Tourniquet was then inflated to 250 mmHg. Attention was now directed to the dorsal aspect of the right 2nd toe in which a dorsal linear incision was made overlying the proximal interphalangeal joint. Utilizing a 15 blade, the incision was now taken down to the level of subcutaneous tissue being careful to identify and retract all vital neurovascular structures and to cauterize all vessels as needed. At this time, a transverse tenotomy and capsulotomy were performed and the collateral ligaments were resected both medial and laterally. The extensor tendon was now resected proximally to the point where the head of the proximal phalanx was brought on to the operating field. Utilizing an oscillating bone saw, the prominent head of the proximal phalanx was now resected and this was passed off the operative field. The bone stump was now smoothed to a smooth contour with a kasey. The mini C-arm was utilized to evaluate and this time, the resection was noted to be excellent with good positioning and placement. The area was then irrigated with copious amounts of normal saline and the tendon was then reapproximated utilizing 4-0 Vicryl in a simple interrupted stitch and for skin closure, a 4-0 nylon was utilized in a simple interrupted stitch. Attention was now directed to the dorsal aspect of the right 3rd toe in which a dorsal linear incision was made overlying the right 3rd toe proximal interphalangeal joint. The incision was now deepened down to the level of the subcutaneous tissue being careful to identify and retract all vital neurovascular structures and to cauterize all vessels as needed. At this time, a transverse tenotomy and capsulotomy were performed and the collateral ligaments were resected both medial and laterally. The extensor tendon was reflected both proximally to the point where the head of the proximal phalanx was brought on to the operating field. Utilizing an oscillating bone saw, the head of the proximal phalanx was resected. It was passed off the operative field and the bone stump was now smoothed to a smooth contour with a kasey. The mini C-arm was now utilized to evaluate and this time, the resection was noted to be excellent. The wound was then irrigated with copious amounts of normal saline and for tendon reapproximation, 4-0 Vicryl was utilized in a simple interrupted stitch and for skin closure, 4-0 nylon was utilized in a simple interrupted stitch. Next, attention was now directed to the 4th toe of the right foot in which a dorsal linear incision was made overlying the proximal interphalangeal joint. Utilizing a 15 blade, the incision was now deepened down to the level of subcutaneous tissue being careful to identify and retract all vital neurovascular structures and to cauterize all vessels as needed. At this time, a transverse tenotomy and capsulotomy were performed with resection of the collateral ligaments both medially and laterally and the extensor tendon was now reflected both proximally. At this time, the bone was evaluated prior to resection and the head of the proximal phalanx along with the middle phalanx was noted to be hard and viable at this time. Utilizing an oscillating bone saw, the head of the proximal phalanx was resected and this particular bone was now sent for pathology to ensure that there was no osteomyelitis noted due to the ulceration, but upon evaluation, the bone appeared to be hard and viable both through its entirety as well as the middle phalanx. The bone stump was now smoothed to a smooth contour with a kasey and the mini C-arm was utilized to evaluate and at this time, the resection was found to be excellent. The wound was then irrigated with copious amounts of normal saline and after complete irrigation, the tendon was now reapproximated with 4-0 Vicryl in a simple interrupted stitch and for skin closure, 4-0 nylon was utilized in a simple interrupted stitch. Attention was now directed to the 5th toe of the right foot in which a double semi-elliptical incision was made from a distal medial to proximal lateral direction. Utilizing a 15 blade, the skin was now ellipsed in toto and it was passed off the operative field. A transverse tenotomy and capsulotomy were now performed to the point where the head of the proximal phalanx was brought on to the operating field. The collaterals were resected and the tendon was now reflected more proximally. The head of the proximal phalanx was noted at this time and it was now resected and this was passed off the operative field. The bone was now smoothed to a smooth contour with a kasey. The mini C-arm was utilized to evaluate. At this time, there was noted to be a good resection at this time with no bony prominences. The area was then irrigated with copious amounts of normal saline and after complete irrigation, the tendon was then reapproximated utilizing 4-0 Vicryl in a simple interrupted stitch and for skin closure, a 4-0 nylon was utilized in a simple interrupted stitch. At this point, there still seemed to have a dorsal contracture of the right 5th toe. I then proceeded and I made a separate incision, a transverse incision overlying the metatarsophalangeal joint approximately 1 cm. At this time, the incision was now deepened down to the level of the subcutaneous tissue being careful to identify and retract all vital neurovascular structures and cauterize the vessels as needed. At this time, a transverse tenotomy and capsulotomy were performed to the point where now the toe was sitting in a much more rectus position. The area was then irrigated with copious amounts of normal saline and after complete irrigation, a 4-0 nylon was utilized in a simple interrupted stitch for reapproximation. The mini C-arm was utilized to take the picture. At this time, the deformities that were present previously have been resected and a good correction to the hammertoe deformities of 2 through 5 of the right foot. A Betadine-soaked adaptic and guaze were then applied to the right foot along with a dry sterile compressive dressing. The tourniquet was released and at this time, the capillary refill was noted to all digits to 1 through 5 of the right foot. The patient did tolerate the procedure well and left the OR to the recovery room with vital signs stable and neurovascular status back to preoperative condition. She will follow up with me in my office on Wednesday. ИВАН Fox/LIU /[id number]
== END | disposition home or self-care (01) ==
LOC: OR 10:48
PROVIDERS: ATTEND Podiatrist
DX: M20.41 Other hammer toe(s) (acquired), right foot (principal); M86.671 Other chronic osteomyelitis, right ankle and foot; E11.621 Type 2 diabetes mellitus with foot ulcer; L97.519 Non-pressure chronic ulcer of other part of right foot with unspecified severity; G62.9 Polyneuropathy, unspecified; M79.7 Fibromyalgia; D64.9 Anemia, unspecified; E66.9 Obesity, unspecified; K58.9 Irritable bowel syndrome, unspecified; I10 Essential (primary) hypertension; F32.9 Major depressive disorder, single episode, unspecified; F41.9 Anxiety disorder, unspecified; Z01.812 Encounter for preprocedural laboratory examination; Z01.818 Encounter for other preprocedural examination; Z79.84 Long term (current) use of oral hypoglycemic drugs; Z68.30 Body mass index [BMI] 30.0-30.9, adult
CPT/HCPCS: 28270; 28285 ×4; 36415 ×2; 71046; 80048; 82948; 85025; 85610; 85730; 88305; 88311; J0131; J0690; J1100; J2001 ×2; J2250; J2405; J2704; 88304

== ENCOUNTER → 2020-09-13 | Outpatient (CLI) | payer OTHER ==
[~2020-09-13] MED LIST changes: -ACETAMINOPHEN 1000 MG/100 ML 100 ML IV ONE; -ACETAMINOPHEN 1000 MG/100 ML IV ONE; -BUPIVACAINE HCL 0.5% INJ 30 ML VIAL INJ ONE; +BYDUREON B2 MG/0.85 INJ; -CEFAZOLIN SOD 2 GM/D5W 50ML 50 ML IV ONE; +COCONUT PO; +COLLAGEN PLUS1 EACH PO; -DEXAMETHASONE SOD PHOS INJ 4 MG/ML VIAL ONE; -FENTANYL CITRATE/PF 100MCG/2 ML INJ ONE; -LIDOCAINE HCL 1% LOCAL INJ 20 ML VIAL ONE; -LIDOCAINE HCL 2% LOCAL INJ 5 ML SDV VIAL INJ ONE; -MIDAZOLAM HCL 2 MG/2 ML VIAL ONE; -ONDANSETRON HCL INJ 2MG/ML 2ML 2 MG/ML VIAL ONE; -PROPOFOL IV EMULSION 10 MG/ML 20 ML VIAL ONE; -SEVOFLURANE INHAL SOLN 250 ML PEN BTL ONE; +TYLENOL ARTHRITIS PO
[2020-09-13 14:16] LABS: BASOPHILS % 0.4 % (0.0-1.0); EOSINOPHILS # (AUTO) 0.1 (0.0-0.4); EOSINOPHILS % 1.4 % (0.0-6.0); LYMPHOCYTES % 37.3 % (18.0-39.1); MEAN CORPUSCULAR HGB CONC 31.1 g/dL (31-35); MEAN CORPUSCULAR VOLUME 86.9 fL (81-99); MONOCYTES # (AUTO) 0.7 (0.2-0.8); MONOCYTES % 8.9 % (4.4-11.3); NEUTROPHILS # (AUTO) 4.1 (2.1-6.9); NEUTROPHILS % 51.6 % (38.7-80.0); PLATELET COUNT 174 x10e3/uL (140-360); RED BLOOD COUNT 5.18 x10e6/uL (3.6-5.1); RED CELL DISTRIBUTION WIDTH 14.2 % (11.7-14.4)
[2020-09-13 14:35] LABS: ANION GAP 15.1 mmol/L (8-16); CALCIUM 8.9 mg/dL (8.4-10.2); CREATININE, SERUM 0.74 mg/dL (0.57-1.11); POTASSIUM 4.1 mmol/L (3.5-5.1)
== END ==
LOC: DX 13:48
PROVIDERS: ATTEND Internal Medicine Infectious Disease
DX: Z45.2 Encounter for adjustment and management of vascular access device (principal); M86.172 Other acute osteomyelitis, left ankle and foot
CPT/HCPCS: 36415; 36569; 71045; 80048; 85025

== ENCOUNTER → 2020-09-18 | Day surgery (SDC) | payer OTHER ==
[2020-09-16 14:55] LABS: CLARITY,URINE SL CLOUDY (CLEAR); COLOR,URINE YELLOW (YELLOW); KETONES,URINE NEGATIVE (NEGATIVE); LEUKOCYTE ESTERASE ,URINE NEGATIVE (NEGATIVE); NITRITE,URINE NEGATIVE (NEGATIVE); PROTEIN,URINE DIPSTICK NEGATIVE (NEGATIVE); URINE UROBILINOGEN 0.2 mg/dL (0.2 - 1)
[2020-09-16 15:03] LABS: INR 0.91; PARTIAL THROMBOPLASTIN TIME 26.9 seconds (23.8-35.5); PROTHROMBIN TIME 12.4 seconds (11.9-14.5)
[~2020-09-18] MED LIST changes: +BUPIVACAINE 0.25% 30ML SDV ONE; +CEFEPIME IV; +FENTANYL CITRATE/PF 100MCG/2 ML INJ ONE; +LIDOCAINE HCL 1% LOCAL INJ 20 ML VIAL ONE; +LIDOCAINE HCL 2% LOCAL INJ 5 ML SDV VIAL INJ ONE; +MIDAZOLAM HCL 2 MG/2 ML VIAL ONE; +ONDANSETRON HCL INJ 2MG/ML 2ML 2 MG/ML VIAL ONE; +POVIDONE IODINE 0.05% 0.05 % ML PO ONE; +PROPOFOL IV EMULSION 10 MG/ML 20 ML VIAL ONE; +SEVOFLURANE INHAL SOLN 250 ML PEN BTL ONE; +SODIUM CHLORIDE 0.9% 50ML 100 ML ONE; +VANCOMYCIN IV
[2020-09-18 16:00] VITALS: BP 133/86
== END | disposition home or self-care (01) ==
LOC: OR 10:35
PROVIDERS: ATTEND Podiatrist
DX: E11.621 Type 2 diabetes mellitus with foot ulcer (principal); E11.69 Type 2 diabetes mellitus with other specified complication; M86.172 Other acute osteomyelitis, left ankle and foot; E11.40 Type 2 diabetes mellitus with diabetic neuropathy, unspecified; Z01.810 Encounter for preprocedural cardiovascular examination; Z01.812 Encounter for preprocedural laboratory examination; Z20.822 Contact with and (suspected) exposure to COVID-19; G47.33 Obstructive sleep apnea (adult) (pediatric); I27.20 Pulmonary hypertension, unspecified; Z88.2 Allergy status to sulfonamides; Z79.84 Long term (current) use of oral hypoglycemic drugs
CPT/HCPCS: 14040; 28113; 28285; 36415 ×2; 81003; 82948; 85610; 85730; 87071; 87075; 87205; 88304; 88311; 93005; J0690; J2001 ×2; J2250; J2405; J2704; J3010; U0002; 88305